=== PATIENT | male | born 1940 | race Caucasian/White ===

== ENCOUNTER 2018-05-31 09:18 | Outpatient (CLI) | payer MEDICARE ==
[2018-05-31 10:40] LABS: #Eosinphils 0.2 thou/uL (0.0-0.7); #Lymphocytes 0.7 thou/uL (1.20-3.40); #Monocytes 0.3 thou/uL (0.11-0.59); #Neutrophils 2.8 thou/uL (1.40-6.50); %Basophils 0.6 % (0.0-1.0); %Eosinophils 5.4 % (0.0-10.0); %Lymphocytes 16.6 % (21.0-51.0); %Monocytes 6.4 % (0.0-10.0); Hemoglobin 13.6 g/dL (14.0-18.0); Mean Corpuscular HGB CONC 32.8 g/dL (32.0-36.0); Mean Corpuscular Hemoglobin 32.4 pg (27.0-31.0); Mean Corpuscular Volume 98.6 fL (78.0-98.0); Mean Platelet Volume 7.8 fL (7.4-10.4); Platelet Count 140 thou/uL (130-400); RBC Distribution Width 13.8 % (11.5-14.5); Red Blood Cell (RBC) Count 4.21 mill/uL (4.70-6.10)
[2018-05-31 10:44] LABS: INR-International Normal Ratio 2.6; Prothrombin Time 28.1 SEC (12.0-14.7)
[2018-05-31 10:45] LABS: PTT 43.6 SEC (22.9-36.1)
[2018-05-31 11:01] LABS: ALT (SGPT) 20 U/L (8-55); AST (SGOT) 23 U/L (5-34); Alkaline Phosphatase 111 U/L (40-150); Anion Gap 8 mmol/L (10-20); BUN (Urea Nitrogen) 21 mg/dL (8.4-25.7); Calc. Creatinine Clearance 0 mL/min (70-130); Calcium 9.9 mg/dL (7.8-10.44); Carbon Dioxide 33 mmol/L (23-31); Chloride 107 mmol/L (98-107); Estimated GFR-MDRD 81; Globulin 3.2 g/dL (2.4-3.5); Glucose 107 mg/dL (83-110); Potassium 3.9 mmol/L (3.5-5.1); Protein, Total 7.2 g/dL (5.8-8.1); Sodium 144 mmol/L (136-145)
== END 2018-05-31 09:19 | disposition home or self-care (01) ==
LOC: LABBT 09:18
PROVIDERS: ATTEND Internal Medicine Cardiovascular Disease
DX: Z01.812 Encounter for preprocedural laboratory examination (principal); R93.89 Abnormal findings on diagnostic imaging of other specified body structures
CPT/HCPCS: 80053; 85025; 85610; 85730

== ENCOUNTER 2018-06-05 05:51 | Inpatient (IN) | payer MEDICARE ==
[2018-06-05 06:48] LABS: INR-International Normal Ratio 1.4; PTT 35.6 SEC (22.9-36.1); Prothrombin Time 17.5 SEC (12.0-14.7)
[2018-06-05 07:02] LABS: Cardiac Risk 3.2 (Less than 4.5)
[2018-06-05] MEDS ORDERED: Heparin 10,000 UNITS/1 ML VIAL ONE (08:27)
[2018-06-05] MEDS ORDERED: Lidocaine 1% (PF) 30 ML VIAL ONE (08:28)
[2018-06-05] MEDS ORDERED: Fentanyl 100 MCG/2 ML VIAL ONE (09:33)
[2018-06-05] MEDS ORDERED: Midazolam HCl 2 mg/2 ml Vial ONE (09:33)
[2018-06-05] MEDS ORDERED: hydrALAZINE 20 MG/ML VIAL ONE ×2 (10:17→11:07)
[2018-06-05] MEDS ORDERED: Protamine Sulfate 50 MG/5 ML VIAL ONE (10:17)
[2018-06-05] MEDS ORDERED: traMADol HCl 50 MG TAB PO PRN (10:39)
[2018-06-05] MEDS ORDERED: Acetaminophen/Codeine 30-300mg Tablet PO PRN ×2 (10:39)
[2018-06-05] MEDS ORDERED: Nitroglycerin 0.4 MG TAB (25 Tab Bottle) SL PRN (10:39)
[2018-06-05] MEDS ORDERED: Sodium Chloride 0.9% 200 ML IV PRN (10:45)
[2018-06-05] MEDS ORDERED: Sodium Chloride 0.9% 1,000 ML IV SCH (10:45)
[2018-06-05] MEDS ORDERED: Iopamidol 370 76% 50 ML VIAL FS ONE (10:54)
[2018-06-05] MEDS ORDERED: Iopamidol 370 76% 100 ML VIAL ONE (10:54)
[2018-06-05] MEDS ORDERED: Nitroglycerin 4.9 GM Bottle ONE (11:07)
[2018-06-05 14:33] VITALS: BMI 34.4
[2018-06-05] MEDS: Carvedilol 6.25 MG TAB PO SCH (16:32)
--- NOTE | 2018-06-05 18:40 | HP ---
HISTORY: Clement Lozoya is a 77-year-old white male that I have been following since 07/2009. He had moved here from [place], [place]. In 03/2005, he was found to have atrial fibrillation. He underwent transesophageal echo and electrical cardioversion. However, with 100, 150, 250 and 360 joules x3, he did not convert. He states that since that time, he has been in atrial fibrillation. However, from some of the old records that I had, it was confusing in that a Holter monitor from 04/2005 stated that he was in sinus rhythm. He has, however, been on Coumadin since that time. In 03/2005, he underwent Cardiolite treadmill test and was found to have ischemia in the LAD distribution. He underwent catheterization and was found to have a 40-50% proximal LAD and a 40% mid RCA stenosis. He was asymptomatic until 02/2007 when he developed episodes of " indigestion." He again underwent nuclear scan which revealed more significant findings in the anterior wall. He again underwent cardiac catheterization, had ejection fraction of 60%. There was a 95% proximal LAD stenosis at the takeoff of the first diagonal, 40-50% first diagonal stenosis and 50-60% mid LAD stenosis. There was mild plaquing of the circumflex. The right coronary artery had a 30% mid stenosis. He then underwent placement of a Cypher 2.5 x 13 mm stent in the first diagonal and a Cypher 3.0 x 13 mm stent in the LAD. The LAD stent was postdilated with 3.5 mm balloon. Since that time, he has not had any further episodes of "indigestion. " Since being followed here, he has had Cardiolite performed in 08/2009, 07/2011, 11/2013 and 09/2015, which have been unremarkable. He recently underwent evaluation prior to undergoing cystoscopy. Echocardiogram revealed ejection fraction 55-60% with moderate left atrial enlargement, mild mitral regurgitation , mild mitral annular calcification, aortic valvular sclerosis, mild tricuspid regurgitation, and mild pulmonic regurgitation. He underwent cardiac PET scan which revealed ischemia of the distal anterior apical, distal inferior and mid to distal septal haas. With this new finding of ischemia, it was recommended he undergo cardiac catheterization. Risks of this were discussed including , myocardial infarction, dye reaction, vascular injury, CVA, transfusion, limb loss, renal loss, etc. Also, risk of intervention with PTCA and stent placement were thoroughly discussed including , myocardial infarction, emergent CABG, restenosis, stent thrombosis, vessel perforation, etc. We discussed bare metal stent versus drug-eluting stent. With his need for long- term anticoagulation, only a bare metal stent would be placed. PAST MEDICAL HISTORY: Hypertension, hypercholesterolemia, hypertriglyceridemia , obstructive sleep apnea, chronic atrial fibrillation. No history of diabetes. MEDICATIONS: Fish oil 1000 mg t.i.d., probiotic 1 daily, carvedilol 25 mg 1/2 tablet b.i.d., oxybutynin 15 mg daily, Jantoven 5 mg 1-1/2 tablets on Monday, Monday, Monday and 2 tablets on the other days, simvastatin 20 at bedtime, CoQ10 of 100 mg daily, aspirin 81 daily, lisinopril 20 mg daily, furosemide 80 mg daily. ALLERGIES: None. OPERATIONS: Herniorrhaphy, radiofrequency ablation of the right great saphenous vein. SOCIAL HISTORY: He does not smoke or drink. 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 FAMILY HISTORY: Mother had stroke and . No family history of CABG, myocardial infarction, or sudden . REVIEW OF SYSTEMS: Twelve-point review of systems is unremarkable. PHYSICAL EXAMINATION: VITAL SIGNS: Blood pressure 170/80, pulse of 50. HEENT: PERRL. NECK: Supple. CHEST: Clear. CARDIAC: S1, S2 normal, without any S3, S4 or murmurs. ABDOMEN: Normal bowel sounds, without tenderness. EXTREMITIES: Revealed 1+ pretibial edema on the right with significant chronic stasis changes. On the left, there is trace edema with stasis changes. They are not as significant as the right. NEUROLOGIC: Grossly intact. SKIN: Warm and dry. LABORATORY DATA: Pending. IMPRESSION: 1. Abnormal nuclear scan with ischemia of the distal anterior apical distal inferior and mid to distal septal haas. He has been off his Coumadin for 5 days for the catheterization. 2. Preoperative cardiovascular examination prior to a procedure-cystoscopy. 3. Status post drug-eluting stent placement in the proximal LAD and first diagonal in 01/2007 in [place], [place]. 4. Chronic atrial fibrillation, rate controlled. 5. Hypercholesterolemia. 6. Hypertriglyceridemia. 7. Hypertension. 8. Obstructive sleep apnea. 9. Venous insufficiency, status post right great saphenous vein radiofrequency ablation. He does have right anterior accessory great saphenous vein and right small saphenous vein, both of which have reflux. PLAN: Patient will undergo cardiac catheterization and indicated procedures. Risks have been discussed and he agrees to proceed. TAHIR
[2018-06-05] MEDS ORDERED: Fish Oil 1,000 MG CAP PO SCH (21:00)
[2018-06-05] MEDS ORDERED: Atorvastatin Calcium 10 MG TAB PO SCH (21:00)
--- NOTE | 2018-06-05 21:31 | CT ---
CT CHEST WITHOUT CONTRAST: 06/05/18 Multiple axial tomograms obtained through the chest without IV enhancement. INDICATION: Assess the thoracic aorta for aneurysmal dilatation and tortuosity. FINDINGS: The lung faulkner are clear with no focal infiltrate. There is interstitial prominence peripherally wit h stranding in the bases. There are a few scattered calcified granuloma which are tiny measuring in t he 3 mm range. The findings are consistent with chronic lung change. There are nonspecific mediastinal lymph nodes. A precarinal lymph node measures 2.0 cm. There are sub carinal lymph nodes measuring up to 1.5 cm. Numerous AP window nodes measuring up to 1.8 cm. Small bi lateral hilar nodes measuring up to 1.0 cm. Evaluation of the thoracic aorta shows mild aneurysmal di latation. Diameter at the aortic root a the sinus of Valsalva is measured at 4.4 cm. Sinotubular paresh surement is recorded at 3.4 cm. These are both mildly increased for male patient. Ascending aorta shows slight aneurysmal dilatation measured at 3.8 cm. The proximal descending thoracic aorta slightly above normal at 3.0 cm and the more distal descending thoracic aorta measures 3.0 cm. There are atherosclerotic changes involving the thoracic aorta with peripheral calcification. The descending thoracic aorta is tortuous. Images through the upper abdomen unremarkable. IMPRESSION: 1. Chronic lung changes with peripheral interstitial thickening and fibrotic stranding prominent in the lung bases. Scattered calcified granuloma. 2. Nonspecific mediastinal lymph node enlargement as described. 3. 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 The descendin g thoracic is tortuous. POS: [facility]
--- NOTE | 2018-06-05 22:11 | RAD ---
PORTABLE CHEST: 06/05/18 HISTORY: Preoperative evaluation. FINDINGS/IMPRESSION: Cardiomegaly with mild vascular congestion is seen. No focal consolidation or infiltrate. No signific ant effusion. POS: [facility]
[2018-06-05] MEDS ORDERED: [UNRECOGNIZED DRUG - REMARK] FS SCH (22:15)
--- NOTE | 2018-06-05 22:21 | CON ---
DATE OF CONSULTATION: 06/05/2018 REQUESTING PHYSICIAN: Silas Bahena MD. PRIMARY CARE PHYSICIAN: Nestor Napier MD. CHIEF COMPLAINT: Dyspnea on exertion. HISTORY OF PRESENT ILLNESS: The patient is a 77-year-old white man with hypertension and chronic atr ial fibrillation. He was due to have a cystoscopy for possible resection of a bladder tumor and was referred for a cardiac evaluation prior to that procedure. Nuclear stress test done as a part of antonio t evaluation showed anteroapical, inferior, and septal ischemia, and cardiac catheterization today sh ows severe three-vessel coronary artery disease primarily left-sided disease with preserved left vent ricular systolic function. The patient denies any chest pain, pressures, or squeezing. He denies an y heartburn type symptoms, but in retrospect, he does admit to some modest dyspnea on exertion over t he past year that had not been particularly bothersome and he had attributed to simply being decondit ioned from lack of exercise. He has noticed that walking on an incline is far more likely to make hi m short of breath than walking on the flat. PAST MEDICAL HISTORY: Significant for his chronic atrial fibrillation, hypertension, hypercholestero lemia, obstructive sleep apnea, and bilateral venous stasis disease far worse on the right than on th e left. HOME MEDICATIONS: Lisinopril 20 mg a day, Coreg 12.5 mg b.i.d., and Coumadin 7.5 mg on Monday, , and Monday and 10 mg on Monday, Monday, and . Simvastatin 20 mg a day, baby aspirin a day, Lasix 80 mg a day, Coenzyme Q10 of 100 mg a day, fish oil 1000 mg t.i.d., multivitamin daily, a nd probiotic. His Coumadin currently is on hold. ALLERGIES: He denies any medical allergies. SOCIAL HISTORY: He has never smoked. FAMILY HISTORY: Significant for a brother who of a stroke. REVIEW OF SYSTEMS: Negative for any eye, speech, facial, or extremity symptoms consistent with TIAs. Negative for any claudication symptoms. It is positive for some fairly dramatic right leg swelling and some mild left leg swelling. It is negative for any orthopnea or PND. PHYSICAL EXAMINATION: GENERAL: He is in no distress. VITAL SIGNS: Heart rate is in the 60s to 70s. Blood pressure in the 170s/80s. Room air O2 sats are 96%, respirations 18, temperature 98.6. He has no xanthelasma. He has dentures. NECK: No JVD, no carotid bruits. LUNGS: His chest is clear to auscultation. HEART: He has an irregular rate and rhythm. ABDOMEN: Soft and nontender without masses or bruits. EXTREMITIES: He has easily palpable radial, ulnar, dorsalis pedis, and posterior tibial pulses bilat erally. Wilfredo's testing is normal on both sides. His lower legs show venous stasis pigmentation jael nges quite dramatically involving most of the right lower leg, which is probably twice as big as the left lower leg. NEUROLOGIC: Exam is grossly nonfocal. LABORATORY DATA: Shows a white count of 4.0, hemoglobin 13.6, hematocrit 41.5, platelets 140,000. P T was 17.5 with an INR of 1.4 and PTT was 35.6. Electrolytes were normal. Glucose 107, BUN 21, crea tinine 0.91. LFTs were normal. Calcium 9.9, albumin 4.0. Cardiac catheterization shows a right dom inant system with about 50% or perhaps 60% lesion in its mid portion near the acute marginal. There is some irregularity in the distal vessel with about 60% or 70% focal lesion in the [id number] PDA , a fairly pronounced posterolateral system. The left main is essentially normal and the circumflex has a high-grade proximal lesion and it is a diminutive system with only very tiny obtuse marginals c oming out of the groove. He has diffusely diseased LAD with focal 99% lesion in its mid portion. He has a high bifurcated diagonal that runs in a ramus type distribution and there is some haziness in the very proximal portion and it bifurcates proximally; however, the more posterolateral branch has w hat appears to be a significant proximal lesion in it, but both branches are fairly small. LVEF is a round 50%-60% with some anterior hypokinesis. LV pressure was 169/6 with an EDP of 11 and aortic pre ssure was 163/63 with a mean of 98. IMPRESSION AND RECOMMENDATIONS: Significant 3-vessel coronary artery disease with his dyspnea on exe rtion in all likelihood representing ischemia, which has been physiologically documented by nuclear s tress testing. Dr. Bahena described to me some technical difficulties negotiating his catheters ar ound the arch to do coronary angiography and is concerned that he may have an ectatic aorta or even a n aneurysmal aorta, and a CT scan without contrast is going to be done this evening to screen for antonio t possibility. Assuming that, that does not show anything to change or plan, I will plan on coronary artery bypass grafting this hospitalization while he is off Coumadin.
[2018-06-06 05:59] LABS: #Eosinphils 0.2 thou/uL (0.0-0.7); #Lymphocytes 0.7 thou/uL (1.20-3.40); #Monocytes 0.4 thou/uL (0.11-0.59); #Neutrophils 3.6 thou/uL (1.40-6.50); %Eosinophils 3.5 % (0.0-10.0); %Monocytes 8.6 % (0.0-10.0); %Neutrophils 73.9 % (42.0-75.0); Hemoglobin 13.1 g/dL (14.0-18.0); Mean Corpuscular HGB CONC 32.1 g/dL (32.0-36.0); Mean Corpuscular Hemoglobin 31.8 pg (27.0-31.0); Mean Platelet Volume 7.9 fL (7.4-10.4); Platelet Count 137 thou/uL (130-400); RBC Distribution Width 13.7 % (11.5-14.5); Red Blood Cell (RBC) Count 4.11 mill/uL (4.70-6.10); White Blood Cell (WBC) Count 4.9 thou/uL (4.8-10.8)
[2018-06-06] MEDS ORDERED: CEFAZOLIN 2 GM/50 ML BAG IVPB SCH (06:00)
[2018-06-06 06:12] LABS: Anion Gap 12 mmol/L (10-20); BUN (Urea Nitrogen) 20 mg/dL (8.4-25.7); Calc. Creatinine Clearance 114 mL/min (70-130); Calcium 9.3 mg/dL (7.8-10.44); Carbon Dioxide 23 mmol/L (23-31); Chloride 108 mmol/L (98-107); Estimated GFR-MDRD 83; Glucose 103 mg/dL (83-110); Potassium 4.1 mmol/L (3.5-5.1); Sodium 139 mmol/L (136-145)
[2018-06-06] MEDS ORDERED: Furosemide 80 MG TAB PO SCH (07:30)
[2018-06-06] MEDS: Carvedilol 6.25 MG TAB PO SCH (07:54)
[2018-06-06] MEDS ORDERED: Lisinopril 20 MG TAB PO SCH (09:00)
[2018-06-06] MEDS ORDERED: Aspirin 81 mg Enteric Coated Tablet PO SCH (09:00)
[2018-06-06] MEDS ORDERED: Ubidecarenone 50 MG CAP PO SCH (09:00)
[2018-06-06] MEDS ORDERED: CEFAZOLIN 2 GM/50 ML BAG ONE (09:03)
[2018-06-06] MEDS ORDERED: Midazolam HCl 2 mg/2 ml Vial ONE ×2 (09:19→10:59)
[2018-06-06] MEDS ORDERED: Ondansetron ODT 4 MG TAB ONE (09:20)
[2018-06-06] MEDS ORDERED: Magnesium 5 GM/10 ML VIAL ONE (10:01)
[2018-06-06] MEDS ORDERED: Lidocaine 2% PF 100 mg/5 ml Syringe ONE (10:01)
[2018-06-06] MEDS ORDERED: PROPOFOL 200 MG/20 ML VIAL ONE (10:01)
[2018-06-06] MEDS ORDERED: Sodium Bicarb 50 MEQ/50 ML VIAL ONE (10:01)
[2018-06-06] MEDS ORDERED: Heparin 5,000 UNITS/ML VIAL ONE (10:01)
[2018-06-06] MEDS ORDERED: PHENYLEPHRINE-NS 100 MCG/ML 10 ML SYRINGE ONE ×2 (10:01→14:48)
[2018-06-06] MEDS ORDERED: Nitroglycerin 50 MG/250 ML BOT ONE (10:01)
[2018-06-06] MEDS ORDERED: Papaverine 60 MG/2 ML VIAL ONE (10:01)
[2018-06-06] MEDS ORDERED: Vecuronium 10 MG VIAL ONE ×2 (10:01→10:27)
[2018-06-06] MEDS ORDERED: Potassium Chloride 60 MEQ/30 ML VIAL ONE (10:01)
[2018-06-06] MEDS ORDERED: Cardioplegic Soln 1,000 ML BAG ONE (10:01)
[2018-06-06] MEDS ORDERED: Mannitol 12.5 GM/50 ML ONE (10:01)
[2018-06-06] MEDS ORDERED: Protamine Sulfate 250 MG/25 ML VIAL ONE (10:01)
[2018-06-06] MEDS ORDERED: Heparin 30,000 units/30 ml VIAL ONE (10:01)
[2018-06-06] MEDS ORDERED: Aminocaproic Acid 5 GM/20 ML VIAL ONE (10:01)
[2018-06-06] MEDS ORDERED: Thrombin 5000 UNITS/5 ML VIAL ONE (10:01)
[2018-06-06] MEDS ORDERED: Lidocaine 1% PF 5 ML VIAL ONE (10:01)
[2018-06-06] MEDS ORDERED: Calcium Chloride 1 GM/10 ML Abboject SYRINGE ONE (10:01)
[2018-06-06] MEDS ORDERED: Albumin 5% 0 ML ONE (10:05)
[2018-06-06] MEDS ORDERED: Norepinephrine 8 MG/0.9% NS 250 ML ONE (10:27)
[2018-06-06] MEDS ORDERED: Heparin 10,000 UNITS/1 ML VIAL 30,000 UNITS in Sodium Chloride 0.9% 1,000 ML IVPB SCH (10:30)
[2018-06-06] MEDS ORDERED: Norepinephrine 8 MG/0.9% NS 250 ML IVPB PRN (10:56)
[2018-06-06] MEDS ORDERED: Acetaminophen 325 MG TAB PO PRN (10:56)
[2018-06-06] MEDS ORDERED: Post-Op Insulin Drip Protocol IVPB ONE (10:56)
[2018-06-06] MEDS ORDERED: hydrALAZINE 20 MG/ML VIAL SLOW IVP PRN (10:56)
[2018-06-06] MEDS ORDERED: Ondansetron PF 4 MG/2 ML Vial IVP PRN (10:56)
[2018-06-06] MEDS ORDERED: HYDROcodone/Acetaminophen 5/325 mg Tablet PO PRN (10:56)
[2018-06-06] MEDS ORDERED: Potassium Chloride 20 MEQ/100 ML PREMIX BAG IVPB PRN (10:56)
[2018-06-06] MEDS ORDERED: Mag-Al 1200 mg/1200 mg/30 ML UDCUP PO PRN (10:56)
[2018-06-06] MEDS ORDERED: Promethazine HCl 25 MG/ML VIAL IM PRN (10:56)
[2018-06-06] MEDS ORDERED: Fentanyl 100 MCG/2 ML VIAL SLOW IVP PRN ×2 (10:56)
[2018-06-06] MEDS ORDERED: Hetastarch 6% 500 ML 500 ML IVPB PRN (10:56)
[2018-06-06] MEDS ORDERED: Bisacodyl 5 MG TAB PO PRN (10:56)
[2018-06-06] MEDS ORDERED: Nitroglycerin 50 MG/250 ML BOT 250 ML IVPB PRN (10:56)
[2018-06-06] MEDS ORDERED: Guaifenesin DM 100-10/5 ML UDCUP PO PRN (10:56)
[2018-06-06] MEDS ORDERED: Bisacodyl 10 MG SUPP PR PRN (10:56)
[2018-06-06] MEDS ORDERED: Fentanyl 250 MCG/5 ML VIAL ONE (10:59)
[2018-06-06] MEDS ORDERED: Dextrose 50% Abboject 50 ML SYRINGE SLOW IVP PRN (12:19)
[2018-06-06] MEDS ORDERED: Dextrose 5% in Water 1,000 ML IV PRN (12:19)
[2018-06-06 16:11] LABS: Actual Bicarbonate (HCO3a) 25.6 mEq/L (22-28); Base Excess (BEa) 0.4 mEq/L (-2.0 to +3.0); CO2 Tension 43.7 mmHg (35.0-45.0); Calcium, Ionized 1.09 mmol/L (1.12-1.30); Carboxyhemoglobin (COHb) 1.4 gm% (0.0-3.0); Hemoglobin (Hb) 11.7 g/dL (14.0-18.0); O2 Tension (PaO2) 65.5 mmHg (> 70.0); Potassium - ABG Lab 3.85 mmol/L (3.70-5.30); pH, Arterial 7.39 (7.35-7.45)
[2018-06-06 16:14] LABS: ALV-art Gradient 236.375 (0-20); Puncture Site LINE
[2018-06-06 16:20] LABS: #Eosinphils 0.2 thou/uL (0.0-0.7); #Lymphocytes 0.7 thou/uL (1.20-3.40); #Monocytes 0.5 thou/uL (0.11-0.59); #Neutrophils 6.3 thou/uL (1.40-6.50); %Basophils 0.1 % (0.0-1.0); %Eosinophils 2.1 % (0.0-10.0); %Lymphocytes 9.7 % (21.0-51.0); %Monocytes 5.9 % (0.0-10.0); %Neutrophils 82.3 % (42.0-75.0); Hemoglobin 11.2 g/dL (14.0-18.0); Mean Corpuscular HGB CONC 33.1 g/dL (32.0-36.0); Mean Corpuscular Hemoglobin 32.5 pg (27.0-31.0); Mean Corpuscular Volume 98.2 fL (78.0-98.0); Mean Platelet Volume 7.3 fL (7.4-10.4); Platelet Count 99 thou/uL (130-400); RBC Distribution Width 13.7 % (11.5-14.5); Red Blood Cell (RBC) Count 3.44 mill/uL (4.70-6.10); White Blood Cell (WBC) Count 7.7 thou/uL (4.8-10.8)
[2018-06-06 16:24] LABS: INR-International Normal Ratio 1.7; PTT 35.9 SEC (22.9-36.1); Prothrombin Time 19.9 SEC (12.0-14.7)
--- NOTE | 2018-06-06 16:27 | RAD ---
CHEST ONE VIEW 06/06/18 HISTORY: 77-year-old male with history of postop open heart. COMPARISON: 06/05/18. FINDINGS: Chest tubes in place. Postop midline sternotomy. Endotracheal tube and right central lines in place. There is bilateral vascular congestion with some bibasilar parenchymal changes, evidence for some sub segmental atelectasis and small pleural effusions and postoperative change. IMPRESSION: Bilateral vascular congestion with small pleural effusions. Recent postop midline sternotomy. Continu ed short term followup. POS: [facility]
[2018-06-06 16:38] LABS: Anion Gap 10 mmol/L (10-20); BUN (Urea Nitrogen) 18 mg/dL (8.4-25.7); Calc. Creatinine Clearance 130 mL/min (70-130); Calcium 7.9 mg/dL (7.8-10.44); Carbon Dioxide 26 mmol/L (23-31); Chloride 112 mmol/L (98-107); Estimated GFR-MDRD Greater than 90; Glucose 136 mg/dL (83-110); Sodium 144 mmol/L (136-145)
[2018-06-06] MEDS: Insulin Regular 300 UNITS/3 ML VIAL SC PRN ×2 (17:02→20:06)
[2018-06-06] MEDS: Sodium Chloride 0.9% 1,000 ML IV SCH (17:07)
--- NOTE | 2018-06-06 19:09 | OP ---
DATE OF OPERATION: 06/06/2018 PROCEDURES PERFORMED: Coronary artery bypass grafting x3 with left internal mammary artery to the di stal LAD and reverse greater saphenous vein graft from the aorta to the posterior branch of the first diagonal and reverse greater saphenous vein graft from the aorta to the distal PDA. PREOPERATIVE DIAGNOSIS: Coronary artery disease and chronic atrial fibrillation. POSTOPERATIVE DIAGNOSIS: Coronary artery disease and chronic atrial fibrillation with right pneumoth orax. SURGEON: Festus Harkins MD RV TECHNICIAN: Yo. ANESTHESIA: General endotracheal. INDICATIONS: The patient is a 77-year-old man with chronic atrial fibrillation who had anterior apic al inferior and septal ischemia on a stress test that was part of a preoperative evaluation prior to a cystoscopic procedure. Cardiac catheterization demonstrated 3-vessel coronary artery disease with a diminutive disease. Circumflex system with significant disease in the right coronary system and a subtotal lesion in the LAD. He is now taken to the operating room off of his Coumadin for surgical r evascularization. FINDINGS: Pump time 78 minutes, crossclamp time 39 minutes. Good quality SHARON and saphenous vein, a very large heart. The LAD was diffusely diseased. It was poor quality vessel, it was about a 1.5 mm vessel near the apex where it was grafted. The main trunk of the diagonal was rock hard. The more posterior of the two branches was of fairly good quality beyond the proximal plaquing and was about 1 .5 mm vessel. The PDA and distal right coronary system were diffusely diseased. The posterolateral branches were soft. The PDA was rock hard throughout much of its length, was of fair quality, 1.5 mm vessel distally were grafted. The right pleura bulged under a small amount of pressure upon weaning from bypass. Pericardium was loosely closed. NARRATIVE REPORT: After informed consent was obtained, the patient was taken to the operating room a nd placed in supine position on the operating table. After the induction of general anesthesia, the patient's right upper chest was prepped and draped in sterile fashion and a triple-lumen central line kit was used to place a right subclavian central line by the Seldinger technique. All three ports e asily aspirated and flushed. The line was secured. Ultrasonographic mapping of the left greater sap henous vein was undertaken. The patient's torso, groins and lower extremities were prepped and drape d in sterile fashion and clinical assistant endoscopically harvested left greater saphenous vein from groin to mid calf. The vein was prepared for use as a graft and the port site was closed in layers of subcut aneous and subcuticular Vicryl. Meanwhile, a median sternotomy was performed and the left internal m ammary artery was mobilized as a skeletonized in situ graft through an extrapleural exposure from the level of the xiphoid to the level of the subclavian vein. The patient was heparinized. The mammary was ligated and divided distally. There was excellent flow through the mammary which was then insti lled intraluminally with papaverine solution. A rent in the pleura near the apex medially was overse wn. The hilar reflections of the pleura were mobilized. The mammary bed was inspected for hemostasi s. The SHARON retractor was placed with a Gallegos retractor. Pericardium was opened and marsupialized. Aorta was palpated and was soft. A double concentric pursestring of 2-0 Ethibond was placed in the a scending aorta just beyond the pericardial reflection and a single pursestring was placed in the righ t atrial appendage. Aortic and venous cannulae were inserted and secured by their pursestrings. The plane between the aorta and the pulmonary artery was developed. Cardiopulmonary bypass was institut ed and the patient was systemically cooled. Heart was examined and the vessels to be bypassed were i dentified. A longitudinal slit was made in the pericardium anterior to the left phrenic nerve throug h which the mammary could be passed. An aortic crossclamp was applied and cardioplegia was administe red through an aortic root needle. When arrest had been achieved, attention was turned to the PDA. It was opened with a [place] blade and Bry scissors at the transition between very hard plaquing and a softer vessel distally. Saphenous vein was anastomosed end-to-side with running Prolene suture and the anastomosis tested by flushing cold saline down the graft, cold cardioplegia down the graft. The diagonal was then explored. The more posterior branch was opened and grafted in a similar unc health ion. The LAD was exposed where it ran deep in the fat. It was a very poor quality vessel, relative soft spot near the apex was identified. It was still a fairly reasonably sized vessel. At that poin t, the mammary was anastomosed there with running 7-0 Prolene suture and the electrocautery used to c ontrol venous bleeding in the epicardial dissection bed, the mammary was tacked to the epicardium. T he aortic crossclamp was placed with partial occluding clamp and aortotomies were made in the ascendi ng aorta PDA graft was anastomosed to the more proximal aortotomy in the diagonal graft and the more distal aortotomy. The partial occluding clamp was removed, and the vein grafts were deaired. The anastomoses were inspected for hemostasis. Proximal anastomoses were marked with small Hemoclips . A posterior pericardial drain was brought out through a separate incision and secured with suture. Right ventricular temporary epicardial pacing wires were placed. The patient was then easily separ ated from cardiopulmonary bypass. An anterior mediastinal drain was placed and the pericardium was l oosely closed over with running Vicryl. The right pleura was bulging. It was decompressed and a 28- Gambian chest tube was placed through that incision in the right pleura. The sternum was treated with vancomycin paste and a platelet rich GPS. The sternum was reapproximated with #7 stainless steel wi res. The fascia and subcutaneous tissue were irrigated and treated with the fascia was closed over the wire with heavy Vicryl. The subcutaneous tissue was reapproximated and the skin was closed with Vicryl subcuticular stitch. The wound was dressed. The patient was taken to the intensive care unit in stable condition.
[2018-06-06 19:54] LABS: Actual Bicarbonate (HCO3a) 22.1 mEq/L (22-28); Base Excess (BEa) -1.4 mEq/L (-2.0 to +3.0); CO2 Tension 33.7 mmHg (35.0-45.0); Calcium, Ionized 1.16 mmol/L (1.12-1.30); Hemoglobin (Hb) 12.9 g/dL (14.0-18.0); O2 Tension (PaO2) 95.7 mmHg (> 70.0); Potassium - ABG Lab 4.16 mmol/L (3.70-5.30); pH, Arterial 7.44 (7.35-7.45)
[2018-06-06 19:55] LABS: Puncture Site A-LINE
[2018-06-06 19:56] LABS: ALV-art Gradient 76.075 (0-20)
[2018-06-06] MEDS: Famotidine/PF 20 mg/2ml Vial SLOW IVP SCH (20:09)
[2018-06-06] MEDS: Fish Oil 1,000 MG CAP PO SCH (20:11)
[2018-06-06] MEDS: Atorvastatin Calcium 10 MG TAB PO SCH (20:11)
[2018-06-06 20:43] LABS: Hemoglobin 12.7 g/dL (14.0-18.0)
[2018-06-06 20:57] LABS: Potassium 4.3 mmol/L (3.5-5.1)
[2018-06-07] MEDS: HYDROcodone/Acetaminophen 5/325 mg Tablet PO PRN (00:42)
[2018-06-07] MEDS: Sodium Chloride 0.9% 1,000 ML IV SCH (00:49)
[2018-06-07 04:50] LABS: Anion Gap 13 mmol/L (10-20); BUN (Urea Nitrogen) 27 mg/dL (8.4-25.7); Calc. Creatinine Clearance 97 mL/min (70-130); Calcium 8.3 mg/dL (7.8-10.44); Carbon Dioxide 22 mmol/L (23-31); Chloride 112 mmol/L (98-107); Estimated GFR-MDRD 70; Glucose 112 mg/dL (83-110); Potassium 4.2 mmol/L (3.5-5.1); Sodium 143 mmol/L (136-145)
[2018-06-07 04:56] LABS: #Lymphocytes 0.6 thou/uL (1.20-3.40); #Monocytes 0.8 thou/uL (0.11-0.59); #Neutrophils 9.2 thou/uL (1.40-6.50); %Eosinophils 0.3 % (0.0-10.0); %Lymphocytes 6.1 % (21.0-51.0); %Monocytes 7.1 % (0.0-10.0); %Neutrophils 86.5 % (42.0-75.0); Hemoglobin 12.2 g/dL (14.0-18.0); Mean Corpuscular HGB CONC 33.4 g/dL (32.0-36.0); Mean Corpuscular Hemoglobin 32.4 pg (27.0-31.0); Mean Corpuscular Volume 97.3 fL (78.0-98.0); Mean Platelet Volume 7.8 fL (7.4-10.4); Platelet Count 148 thou/uL (130-400); RBC Morphology Normal; Red Blood Cell (RBC) Count 3.77 mill/uL (4.70-6.10); White Blood Cell (WBC) Count 10.6 thou/uL (4.8-10.8)
[2018-06-07] MEDS: Famotidine/PF 20 mg/2ml Vial SLOW IVP SCH (08:54)
[2018-06-07] MEDS: Aspirin 81 mg Enteric Coated Tablet PO SCH (08:54)
[2018-06-07] MEDS: Fish Oil 1,000 MG CAP PO SCH ×2 (08:54→20:55)
[2018-06-07] MEDS: Multivitamin W/ Minerals 1 TAB PO SCH (08:55)
[2018-06-07] MEDS: Oxybutynin ER 5 MG TAB PO SCH (08:55)
[2018-06-07] MEDS: Ubidecarenone 50 MG CAP PO SCH (08:55)
--- NOTE | 2018-06-07 09:21 | RAD ---
CHEST ONE VIEW: History: Open heart surgery. Comparison: Previous day. FINDINGS: Heart size is enlarged. Patient has been extubated. Thoracostomy tubes and mediastinal drains are similar. Small effusions. No large pneumothorax is appr eciated. Multiple sternotomy wires. IMPRESSION: Interval extubation without complication. POS: [facility]
[2018-06-07] MEDS ORDERED: Zolpidem Tartrate 5 MG TAB PO PRN (09:46)
[2018-06-07] MEDS ORDERED: Mineral Oil ENEMA PR PRN (09:46)
[2018-06-07] MEDS ORDERED: Bisacodyl 5 MG TAB PO PRN (09:46)
[2018-06-07] MEDS ORDERED: diphenhydrAMINE 25 MG CAP PO PRN (09:46)
[2018-06-07] MEDS ORDERED: Bisacodyl 10 MG SUPP PR PRN (09:46)
[2018-06-07] MEDS ORDERED: Mag-Al 1200 mg/1200 mg/30 ML UDCUP PO PRN (09:46)
[2018-06-07] MEDS ORDERED: Nitroglycerin 0.4 MG TAB (25 Tab Bottle) SL PRN (09:46)
[2018-06-07] MEDS ORDERED: Guaifenesin DM 100-10/5 ML UDCUP PO PRN (09:46)
[2018-06-07] MEDS ORDERED: Artificial Tears 18 DROP/0.9 ML EA EYE PRN (09:46)
[2018-06-07] MEDS ORDERED: Furosemide 40 MG/4 ML VIAL SLOW IVP SCH ×2 (10:30→12:30)
[2018-06-07] MEDS ORDERED: Ketorolac Tromethamine 30 MG/ML VIAL IVP SCH (10:30)
[2018-06-07] MEDS ORDERED: Metolazone 5 MG TAB PO SCH (10:30)
--- NOTE | 2018-06-07 11:03 | PDOC.CTH ---
Cardiology Progress Note - Subjective No new issues. No chets pain. Chest is sore. Passing gas. - Objective Vital Signs Temp Pulse Ox 06/07/18 08:00 98.7 F 95 06/07/18 04:00 100.1 F H Weight 257 lb 15.053 oz 06/06/18 06/07/18 06/08/18 06:59 06:59 06:59 Intake Total 1450 2093 249 Output Total 1075 1300 115 Balance 375 793 134 - Physical Examination General/Neuro: alert & oriented x3, NAD Neck: no JVD present Lungs: CTA, unlabored respirations Heart: RRR Abdomen: NT/ND Extremities: + edema B (1+) - Telemetry Telemetry Rhythm: NSR - Labs Result Diagrams: 06/07/18 03:40 06/07/18 03:40 - Assessment/Plan 1. CAD. 2. S/P CABG x 3, [place] to LAD, SVg to diagonal, SVG to PDA. 3. Chronic afib. PLAN: - Aspirin and statin for life. - On BB - ACEI once BP allows. - Lasix PO BID. - Advance PT as tolerated.
[2018-06-07] MEDS: Furosemide 40 MG TAB PO SCH (15:15)
[2018-06-07] MEDS: Ketorolac Tromethamine 30 MG/ML VIAL IVP SCH (18:44)
[2018-06-07] MEDS: Atorvastatin Calcium 10 MG TAB PO SCH (20:54)
[2018-06-07] MEDS: Carvedilol 3.125 MG TAB PO SCH (20:55)
[2018-06-07] MEDS: Docusate 100 MG CAP PO SCH (20:55)
[2018-06-08] MEDS: Ketorolac Tromethamine 30 MG/ML VIAL IVP SCH ×2 (00:35→05:19)
[2018-06-08 06:18] LABS: Anion Gap 12 mmol/L (10-20); BUN (Urea Nitrogen) 46 mg/dL (8.4-25.7); Calc. Creatinine Clearance 74 mL/min (70-130); Calcium 8.3 mg/dL (7.8-10.44); Carbon Dioxide 23 mmol/L (23-31); Chloride 106 mmol/L (98-107); Estimated GFR-MDRD 49; Glucose 105 mg/dL (83-110); Potassium 3.9 mmol/L (3.5-5.1); Sodium 137 mmol/L (136-145)
[2018-06-08 06:27] LABS: #Lymphocytes 0.7 thou/uL (1.20-3.40); #Monocytes 0.7 thou/uL (0.11-0.59); #Neutrophils 5.6 thou/uL (1.40-6.50); %Basophils 0.1 % (0.0-1.0); %Eosinophils 0.6 % (0.0-10.0); %Lymphocytes 9.5 % (21.0-51.0); %Neutrophils 79.7 % (42.0-75.0); Hemoglobin 10.5 g/dL (14.0-18.0); Mean Corpuscular HGB CONC 32.5 g/dL (32.0-36.0); Mean Corpuscular Volume 98.5 fL (78.0-98.0); Mean Platelet Volume 7.8 fL (7.4-10.4); PLT Morphology Comment Appears Decreased; Platelet Count 108 thou/uL (130-400); Red Blood Cell (RBC) Count 3.28 mill/uL (4.70-6.10)
[2018-06-08] MEDS: Aspirin 81 mg Enteric Coated Tablet PO SCH (08:02)
[2018-06-08] MEDS: Carvedilol 3.125 MG TAB PO SCH ×2 (08:02→21:12)
[2018-06-08] MEDS: Fish Oil 1,000 MG CAP PO SCH ×2 (08:02→21:12)
[2018-06-08] MEDS: Oxybutynin ER 5 MG TAB PO SCH (08:03)
[2018-06-08] MEDS: Furosemide 40 MG TAB PO SCH ×2 (08:03→15:12)
[2018-06-08] MEDS: Ubidecarenone 50 MG CAP PO SCH (08:03)
[2018-06-08] MEDS: Multivitamin W/ Minerals 1 TAB PO SCH (08:03)
[2018-06-08] MEDS: Docusate 100 MG CAP PO SCH ×2 (08:04→21:12)
--- NOTE | 2018-06-08 09:34 | RAD ---
PORTABLE CHEST: HISTORY: Post CABG. COMPARISON: 06/07/2018 study. FINDINGS: Heart size is enlarged with postop sternotomy change. Tube placement appears stable as compared to t he prior exam. No new process. IMPRESSION: Stable exam. POS: [facility]
--- NOTE | 2018-06-08 14:13 | PDOC.CTH ---
Cardiology Progress Note - Subjective He is doing well. Chest tubes still in. Had a BM today. - Objective Vital Signs Temp Pulse Pulse Pulse Resp BP BP 06/08/18 11:52 73 72 146/62 H 107/58 L 06/08/18 11:45 98.8 F 78 16 06/08/18 07:59 06/08/18 07:57 98.6 F 75 18 06/08/18 03:31 98.7 F 69 18 BP Pulse Ox Pulse Ox Pulse Ox 06/08/18 11:52 94 L 95 06/08/18 11:45 107/58 L 99 06/08/18 07:59 95 06/08/18 07:57 115/62 95 06/08/18 03:31 113/53 L 97 Weight 257 lb 4 oz 06/07/18 06/08/18 06/09/18 06:59 06:59 06:59 Intake Total 2093 1199 Output Total 1300 995 Balance 793 204 - Physical Examination General/Neuro: alert & oriented x3, NAD Neck: no JVD present Lungs: CTA, unlabored respirations Heart: other: (irreg) Abdomen: NT/ND Extremities: + edema B (1+) - Telemetry Telemetry Rhythm: Afib HR 60's. - Labs Result Diagrams: 06/08/18 05:26 06/08/18 05:26 - Assessment/Plan 1. CAD. 2. S/P CABG x 3, [place] VE[place] to LAD, SVG to diagonal, SVG to PDA. 3. Chronic afib. PLAN: - Aspirin and statin for life. - On BB - ACEI once BP allows. - Lasix PO BID. - Advance PT as tolerated.
[2018-06-08] MEDS: Atorvastatin Calcium 10 MG TAB PO SCH (21:12)
[2018-06-09 07:00] LABS: #Basophils 0.1 thou/uL (0.0-0.2); #Eosinphils 0.1 thou/uL (0.0-0.7); #Lymphocytes 0.6 thou/uL (1.20-3.40); #Monocytes 0.5 thou/uL (0.11-0.59); #Neutrophils 4.9 thou/uL (1.40-6.50); %Basophils 1.8 % (0.0-1.0); %Eosinophils 2.3 % (0.0-10.0); %Lymphocytes 8.8 % (21.0-51.0); %Monocytes 8.4 % (0.0-10.0); %Neutrophils 78.7 % (42.0-75.0); Hemoglobin 10.6 g/dL (14.0-18.0); Mean Corpuscular HGB CONC 33.4 g/dL (32.0-36.0); Mean Corpuscular Hemoglobin 32.9 pg (27.0-31.0); Mean Corpuscular Volume 98.3 fL (78.0-98.0); Mean Platelet Volume 7.5 fL (7.4-10.4); Platelet Count 119 thou/uL (130-400); RBC Distribution Width 13.8 % (11.5-14.5); Red Blood Cell (RBC) Count 3.23 mill/uL (4.70-6.10); White Blood Cell (WBC) Count 6.3 thou/uL (4.8-10.8)
[2018-06-09 07:11] LABS: Anion Gap 11 mmol/L (10-20); BUN (Urea Nitrogen) 41 mg/dL (8.4-25.7); Calc. Creatinine Clearance 103 mL/min (70-130); Calcium 8.8 mg/dL (7.8-10.44); Carbon Dioxide 27 mmol/L (23-31); Chloride 104 mmol/L (98-107); Estimated GFR-MDRD 71; Glucose 96 mg/dL (83-110); Potassium 3.8 mmol/L (3.5-5.1); Sodium 138 mmol/L (136-145)
[2018-06-09] MEDS ORDERED: Fentanyl 100 MCG/2 ML VIAL ONE (07:40)
[2018-06-09] MEDS ORDERED: Sodium Chloride 0.9% 10 ML ONE (08:36)
[2018-06-09] MEDS: Aspirin 81 mg Enteric Coated Tablet PO SCH (09:15)
[2018-06-09] MEDS: Fish Oil 1,000 MG CAP PO SCH ×2 (09:15→21:05)
[2018-06-09] MEDS: Oxybutynin ER 5 MG TAB PO SCH (09:15)
[2018-06-09] MEDS: Furosemide 40 MG TAB PO SCH ×2 (09:15→13:48)
[2018-06-09] MEDS: Docusate 100 MG CAP PO SCH ×2 (09:15→21:05)
[2018-06-09] MEDS: Multivitamin W/ Minerals 1 TAB PO SCH (09:15)
[2018-06-09] MEDS: Ubidecarenone 50 MG CAP PO SCH (09:15)
[2018-06-09] MEDS: Carvedilol 3.125 MG TAB PO SCH ×2 (09:15→21:05)
--- NOTE | 2018-06-09 11:02 | RAD ---
CHEST 1 VIEW: HISTORY: Post CABG. COMPARISON: Radiograph of prior day. FINDINGS: Heart size continues to be enlarged. Small left effusion. The thoracostomy and mediastinal drains are similar. IMPRESSION: Expected postoperative findings. POS: [facility]
[2018-06-09] MEDS: HYDROcodone/Acetaminophen 5/325 mg Tablet PO PRN (12:52)
[2018-06-09] MEDS: Warfarin Sodium 10 MG TAB PO SCH (16:09)
[2018-06-09] MEDS: Atorvastatin Calcium 10 MG TAB PO SCH (21:05)
--- NOTE | 2018-06-09 21:06 | PDOC.CTH ---
<Iris Michel - Last Filed: 06/09/18 21:11> Cardiology Progress Note - Subjective The pt seen and examined. No overnight events. No cardiac complaints. - Objective Vital Signs Temp Pulse Resp BP Pulse Ox 06/09/18 16:11 98.9 F 76 18 147/73 H 95 06/09/18 11:39 98.6 F 69 18 121/61 Weight 257 lb 12.8 oz 06/08/18 06/09/18 06/10/18 06:59 06:59 06:59 Intake Total 1199 1070 850 Output Total 995 4155 995 Balance 204 -3085 -145 - Physical Examination General/Neuro: alert & oriented x3 Neck: no JVD present Lungs: CTA Heart: other: (irregular) Abdomen: soft Extremities: other: (No edema) - Labs Result Diagrams: 06/09/18 06:43 06/09/18 06:43 - Assessment/Plan 1. CAD with S/P CABG x 3 on 06/06/18, [place] to LAD, SVG to diagonal, SVG to PDA - stable; on ASA, Statin, BBlocker; will start Lisinopril 10mg qd from tomorrow AM 2. CHronic Afib - on BBlocker; Will resume Coumadin when ok by CT surgeon. 3. HTN - stable 4. Hyperlipidemia - on Statin 5. Sleep Apnea - MAR reviewed Review of Systems - Review of Systems Constitutional: reports: no symptoms reported EENTM: reports: no symptoms reported Respiratory: reports: no symptoms reported Cardiac (ROS): reports: no symptoms reported ABD/GI: reports: no symptoms reported : reports: no symptoms reported Musculoskeletal: reports: no symptoms reported Skin: reports: no symptoms reported <Shannon León - Last Filed: 06/10/18 11:32> Cardiology Progress Note - Objective Vital Signs Temp Pulse Resp BP Pulse Ox 06/10/18 08:01 98.2 F 59 L 18 125/71 97 06/10/18 04:59 96 06/10/18 04:00 98.6 F 63 16 144/67 H 96 06/10/18 00:22 94 L Weight 241 lb 3.2 oz 06/09/18 06/10/18 06/11/18 06:59 06:59 06:59 Intake Total 1070 1200 Output Total 4155 2795 Balance -3085 -1595 - Labs Result Diagrams: 06/10/18 06:46 06/10/18 06:46 - Assessment/Plan Pt.seen and eval. by me. I agree with nthe A/P by the INSULATOR HELPER.irreg/irreg. mild lower extremity edema.
[2018-06-10 07:31] LABS: #Eosinphils 0.2 thou/uL (0.0-0.7); #Lymphocytes 0.5 thou/uL (1.20-3.40); #Monocytes 0.7 thou/uL (0.11-0.59); #Neutrophils 4.6 thou/uL (1.40-6.50); %Basophils 0.4 % (0.0-1.0); %Eosinophils 2.7 % (0.0-10.0); %Lymphocytes 8.8 % (21.0-51.0); %Monocytes 11.1 % (0.0-10.0); Mean Corpuscular HGB CONC 33.5 g/dL (32.0-36.0); Mean Corpuscular Hemoglobin 32.7 pg (27.0-31.0); Mean Corpuscular Volume 97.6 fL (78.0-98.0); Mean Platelet Volume 7.8 fL (7.4-10.4); Platelet Count 153 thou/uL (130-400); RBC Distribution Width 13.7 % (11.5-14.5); Red Blood Cell (RBC) Count 3.38 mill/uL (4.70-6.10)
[2018-06-10 07:38] LABS: INR-International Normal Ratio 1.2; PTT 39.9 SEC (22.9-36.1); Prothrombin Time 15.1 SEC (12.0-14.7)
[2018-06-10 08:05] LABS: Anion Gap 12 mmol/L (10-20); BUN (Urea Nitrogen) 36 mg/dL (8.4-25.7); Calc. Creatinine Clearance 118 mL/min (70-130); Carbon Dioxide 28 mmol/L (23-31); Chloride 100 mmol/L (98-107); Estimated GFR-MDRD 89; Glucose 97 mg/dL (83-110); Potassium 3.3 mmol/L (3.5-5.1); Sodium 137 mmol/L (136-145)
[2018-06-10] MEDS ORDERED: Sodium Chloride 0.9% 10 ML ONE (08:27)
--- NOTE | 2018-06-10 09:49 | RAD ---
UPRIGHT PORTABLE CHEST 1 VIEW: HISTORY: A 77-year-old male with a history of status post coronary artery bypass graft. COMPARISON: 06/09/2018. FINDINGS: Monitor leads overlie the chest. Right subclavian catheter. Cardiomegaly. Increased linear and int erstitial markings bilaterally. Removal of the previously noted right-sided chest tube. IMPRESSION: Stable vascular congestion with increased markings bilaterally and small pleural effusions without pn eumothorax or other significant acute process. POS: URBIO
[2018-06-10] MEDS: Furosemide 40 MG TAB PO SCH ×2 (09:51→14:13)
[2018-06-10] MEDS: Carvedilol 3.125 MG TAB PO SCH ×2 (09:51→21:40)
[2018-06-10] MEDS: Oxybutynin ER 5 MG TAB PO SCH (09:51)
[2018-06-10] MEDS: Fish Oil 1,000 MG CAP PO SCH ×2 (09:51→21:40)
[2018-06-10] MEDS: Ubidecarenone 50 MG CAP PO SCH (09:51)
[2018-06-10] MEDS: Docusate 100 MG CAP PO SCH ×2 (09:51→21:40)
[2018-06-10] MEDS: Aspirin 81 mg Enteric Coated Tablet PO SCH (09:51)
[2018-06-10] MEDS: Lisinopril 10 MG TAB PO SCH (09:51)
[2018-06-10] MEDS: Multivitamin W/ Minerals 1 TAB PO SCH (09:51)
--- NOTE | 2018-06-10 11:23 | PDOC.CTH ---
Cardiology Progress Note - Subjective pt. seen and eval. by me. No new events over night. s/p CABG. - Objective Vital Signs Temp Pulse Resp BP Pulse Ox 06/10/18 08:01 98.2 F 59 L 18 125/71 97 06/10/18 04:59 96 06/10/18 04:00 98.6 F 63 16 144/67 H 96 06/10/18 00:22 94 L Weight 241 lb 3.2 oz 06/09/18 06/10/18 06/11/18 06:59 06:59 06:59 Intake Total 1070 1200 Output Total 4155 2795 Balance -0045 -5821 - Physical Examination General/Neuro: alert & oriented x3 Neck: no JVD present Lungs: CTA Heart: other: (irreg/irreg.) Abdomen: NT/ND Extremities: other: (mild edema.) - Telemetry Telemetry Rhythm: Afib. rate controlled. - Labs Result Diagrams: 06/10/18 06:46 06/10/18 06:46 - Assessment/Plan 1. CAD with S/P CABG x 3 on 06/06/18, [place] to LAD, SVG to diagonal, SVG to PDA - stable; on ASA, Statin, BBlocker; will start Lisinopril 10mg qd from tomorrow AM 2. CHronic Afib - on BBlocker; Will resume Coumadin when ok by CT surgeon. 3. HTN - stable 4. Hyperlipidemia - on Statin 5. Sleep Apnea - MAR reviewed
[2018-06-10] MEDS: Warfarin Sodium 10 MG TAB PO SCH (17:16)
[2018-06-10] MEDS: Atorvastatin Calcium 10 MG TAB PO SCH (21:40)
[2018-06-11 05:34] LABS: #Eosinphils 0.2 thou/uL (0.0-0.7); #Lymphocytes 0.8 thou/uL (1.20-3.40); #Monocytes 0.6 thou/uL (0.11-0.59); #Neutrophils 4.1 thou/uL (1.40-6.50); %Basophils 0.2 % (0.0-1.0); %Eosinophils 3.9 % (0.0-10.0); %Monocytes 9.7 % (0.0-10.0); %Neutrophils 72.3 % (42.0-75.0); Hemoglobin 10.9 g/dL (14.0-18.0); Mean Corpuscular HGB CONC 34.1 g/dL (32.0-36.0); Mean Corpuscular Hemoglobin 33.4 pg (27.0-31.0); Mean Platelet Volume 7.8 fL (7.4-10.4); Platelet Count 177 thou/uL (130-400); RBC Distribution Width 13.6 % (11.5-14.5); Red Blood Cell (RBC) Count 3.25 mill/uL (4.70-6.10); White Blood Cell (WBC) Count 5.7 thou/uL (4.8-10.8)
[2018-06-11 05:38] LABS: INR-International Normal Ratio 1.2; PTT 39.3 SEC (22.9-36.1); Prothrombin Time 15.6 SEC (12.0-14.7)
[2018-06-11 05:54] LABS: Anion Gap 13 mmol/L (10-20); BUN (Urea Nitrogen) 37 mg/dL (8.4-25.7); Calc. Creatinine Clearance 116 mL/min (70-130); Calcium 8.7 mg/dL (7.8-10.44); Carbon Dioxide 25 mmol/L (23-31); Chloride 99 mmol/L (98-107); Estimated GFR-MDRD 88; Glucose 105 mg/dL (83-110); Potassium 3.2 mmol/L (3.5-5.1); Sodium 134 mmol/L (136-145)
[2018-06-11] MEDS: Oxybutynin ER 5 MG TAB PO SCH (09:23)
[2018-06-11] MEDS: Fish Oil 1,000 MG CAP PO SCH (09:23)
[2018-06-11] MEDS: Ubidecarenone 50 MG CAP PO SCH (09:23)
[2018-06-11] MEDS: Furosemide 40 MG TAB PO SCH ×2 (09:24→14:18)
[2018-06-11] MEDS: Lisinopril 10 MG TAB PO SCH (09:24)
[2018-06-11] MEDS: Carvedilol 3.125 MG TAB PO SCH (09:24)
[2018-06-11] MEDS: Docusate 100 MG CAP PO SCH (09:24)
[2018-06-11] MEDS: Aspirin 81 mg Enteric Coated Tablet PO SCH (09:24)
[2018-06-11] MEDS: Multivitamin W/ Minerals 1 TAB PO SCH (09:25)
[2018-06-11 15:36] VITALS: BP 116/56; TEMP 98.6
[2018-06-11] MEDS ORDERED: Potassium Chloride 20 MEQ TAB PO SCH (16:30)
--- NOTE | 2018-06-11 22:36 | DIS ---
DATE OF ADMISSION: 06/05/2018 DATE OF DISCHARGE: 06/11/2018 PRIMARY DIAGNOSIS: Coronary artery disease. SECONDARY DIAGNOSES: Chronic atrial fibrillation, hypertension, hypercholesterolemia, obstructive sl eep apnea, and venous stasis disease. PROCEDURES PERFORMED: Cardiac catheterization on 06/05/2018 coronary artery bypass grafting x3, left internal mammary artery to distal LAD and reverse greater saphenous vein grafts from aorta to the fi rst diagonal and the PDA on 06/06/2018. HISTORY OF PRESENT ILLNESS AND HOSPITAL COURSE: The patient is a 77-year-old man with chronic atrial fibrillation who had stress test demonstrating anteroapical septal and inferior ischemia as part of a preoperative evaluation for a cystoscopic procedure. Cardiac catheterization demonstrated severe l eft-sided coronary artery disease as well as more modest right coronary system disease. CT scanning demonstrated his thoracic aorta to be quite ectatic but not aneurysmal. He underwent revascularizati on. Findings at the time of surgery were primarily notable for the diffuse involvement of his irizarry pratibha with hard plaque. He was extubated the evening surgery and tolerated discontinuation of his tem porary ventricular pacing. He was transferred to the telemetry anthony. He was started back on beta bl ockade at a lower dose because of some preop bradycardic rhythms. He was diuresed. His chest tubes and pacing wires were removed on postop day #3 and Coumadin was restarted that evening and by today o n postoperative day #5, he is getting around well enough to go on home. He will be discharged to res ume his normal regimen of Coumadin. His Coreg will be cut to 3.125 mg b.i.d. and his lisinopril to 1 0 mg a day for the time being has been written a prescription for Vicodin as needed for pain.
[2018-06-12] MEDS ORDERED: Potassium Chloride 10 MEQ TAB PO SCH (09:00)
[2018-06-12 14:15] LABS: Actual Bicarbonate (HCO3a) 19.5 mEq/L (22-28); Analyzer IN Cardio OR; CO2 Tension 30.7 mmHg (35.0-45.0); Calcium, Ionized 1.11 mmol/L (1.12-1.30); Carboxyhemoglobin (COHb) 0.1 gm% (0.0-3.0); Hemoglobin (Hb) 12.1 g/dL (14.0-18.0); O2 Tension (PaO2) 406.7 mmHg (> 70.0); Potassium - ABG Lab 4.44 mmol/L (3.70-5.30); pH, Arterial 7.42 (7.35-7.45)
[2018-06-12 14:16] LABS: Actual Bicarbonate (HCO3v) 28 mEq/L (22-28); Analyzer IN Cardio OR; Base Excess -0.4 mEq/L (-2.0 to +3.0); Calcium, Ionized 1.01 mmol/L (1.16-1.32); Chloride (ABG LAB) 110 mmol/L (98-106); Hemoglobin (Hb) 9.6 g/dL (12.6-17.4); Potassium - ABG Lab 4.43 mmol/L (3.70-5.30); Sodium 136.4 mmol/L (133-146)
[2018-06-12 14:16] LABS: Actual Bicarbonate (HCO3a) 25.8 mEq/L (22-28); Analyzer IN Cardio OR; Base Excess (BEa) -2.2 mEq/L (-2.0 to +3.0); Calcium, Ionized 1.09 mmol/L (1.12-1.30); Carboxyhemoglobin (COHb) 0.3 gm% (0.0-3.0); Hemoglobin (Hb) 9.8 g/dL (14.0-18.0); O2 Tension (PaO2) 353.3 mmHg (> 70.0); Potassium - ABG Lab 4.59 mmol/L (3.70-5.30)
[2018-06-12 14:16] LABS: Actual Bicarbonate (HCO3a) 20.1 mEq/L (22-28); Analyzer IN Cardio OR; Base Excess (BEa) -5.7 mEq/L (-2.0 to +3.0); CO2 Tension 40.8 mmHg (35.0-45.0); Calcium, Ionized 1.14 mmol/L (1.12-1.30); Carboxyhemoglobin (COHb) 0.9 gm% (0.0-3.0); Hemoglobin (Hb) 11.5 g/dL (14.0-18.0); O2 Tension (PaO2) 379.7 mmHg (> 70.0); Potassium - ABG Lab 3.71 mmol/L (3.70-5.30); pH, Arterial 7.31 (7.35-7.45)
[2018-06-12 14:17] LABS: Analyzer IN Cardio OR; Base Excess (BEa) -9.3 mEq/L (-2.0 to +3.0); CO2 Tension 32.8 mmHg (35.0-45.0); Calcium, Ionized 1.12 mmol/L (1.12-1.30); Carboxyhemoglobin (COHb) 0.3 gm% (0.0-3.0); Hemoglobin (Hb) 9.5 g/dL (14.0-18.0); O2 Tension (PaO2) 349.6 mmHg (> 70.0); pH, Arterial 7.31 (7.35-7.45)
[2018-06-12 14:17] LABS: Actual Bicarbonate (HCO3a) 25.4 mEq/L (22-28); Analyzer IN Cardio OR; Base Excess (BEa) 0.6 mEq/L (-2.0 to +3.0); CO2 Tension 41.1 mmHg (35.0-45.0); Carboxyhemoglobin (COHb) 0.3 gm% (0.0-3.0); Hemoglobin (Hb) 11.3 g/dL (14.0-18.0); O2 Tension (PaO2) 203.5 mmHg (> 70.0); Potassium - ABG Lab 4.08 mmol/L (3.70-5.30); pH, Arterial 7.41 (7.35-7.45)
[2018-06-12 14:17] LABS: Actual Bicarbonate (HCO3a) 31.7 mEq/L (22-28); Analyzer IN Cardio OR; Base Excess (BEa) 4.2 mEq/L (-2.0 to +3.0); Calcium, Ionized 1.06 mmol/L (1.12-1.30); Carboxyhemoglobin (COHb) 0.3 gm% (0.0-3.0); Hemoglobin (Hb) 9.1 g/dL (14.0-18.0); O2 Tension (PaO2) 397.7 mmHg (> 70.0); Potassium - ABG Lab 4.55 mmol/L (3.70-5.30)
[2018-06-12 14:35] LABS: Puncture Site ALINE
[2018-06-12 14:36] LABS: CO2 Tension 65.7 mmHg (35.0-45.0)
[2018-06-12 14:37] LABS: Puncture Site ALINE
[2018-06-12 14:37] LABS: Puncture Site ALINE
[2018-06-12 14:38] LABS: pH (venous) 7.24 (7.32-7.43)
[2018-06-12 14:40] LABS: CO2 Tension 61.5 mmHg (35.0-45.0); pH, Arterial 7.24 (7.35-7.45)
[2018-06-12 14:41] LABS: Puncture Site ALINE
[2018-06-12 14:41] LABS: Puncture Site ALINE
[2018-06-12 14:41] LABS: Puncture Site ALINE
== END 2018-06-11 17:12 | disposition home or self-care (01) | DRG 234 ==
LOC: CCL 05:51 → 2NO 14:19 → CCU 06-06 12:18 → 2NO 06-07 11:08
PROVIDERS: ADMIT Internal Medicine Cardiovascular Disease; ATTEND Internal Medicine Cardiovascular Disease
PROC: 4A023N7 Measurement of Cardiac Sampling and Pressure, Left Heart, Percutaneous Approach (ICD-10-PCS; 2018-06-05)
PROC: B2111ZZ Fluoroscopy of Multiple Coronary Arteries using Low Osmolar Contrast (ICD-10-PCS; 2018-06-05)
PROC: B2151ZZ Fluoroscopy of Left Heart using Low Osmolar Contrast (ICD-10-PCS; 2018-06-05)
PROC: 02100Z9 Bypass Coronary Artery, One Artery from Left Internal Mammary, Open Approach (ICD-10-PCS; principal; 2018-06-06)
PROC: 021109W Bypass Coronary Artery, Two Arteries from Aorta with Autologous Venous Tissue, Open Approach (ICD-10-PCS; 2018-06-06)
DX: I25.10 Atherosclerotic heart disease of native coronary artery without angina pectoris (principal); J93.9 Pneumothorax, unspecified; I10 Essential (primary) hypertension; E78.1 Pure hyperglyceridemia; G47.33 Obstructive sleep apnea (adult) (pediatric); I48.2 Chronic atrial fibrillation; I87.8 Other specified disorders of veins; Z79.899 Other long term (current) drug therapy; Z79.01 Long term (current) use of anticoagulants; Z79.82 Long term (current) use of aspirin; E78.00 Pure hypercholesterolemia, unspecified
CPT/HCPCS: 36415; 36416; 71045; 71250; 80048; 80061; 82805; 85025; 85347; 85610; 85730; 86850; 86900; 86901; 93005; 93010; 93458; 93798; 94002; 94150; 99152; 99153; C1769; J0360; J1642; J1644; J1815; J1885; J1940; J2001; J2150; J2250; J2440; J2704; J2720; J3010; J3370; J3475; J3480; J7050; P9045; Q0162; S0017; S0028

== ENCOUNTER 2018-08-02 13:25 | Outpatient (CLI) | payer MEDICARE | END 2018-08-02 13:26 | disposition home or self-care (01) | LOC: CP 13:25 | PROVIDERS: ATTEND Internal Medicine | DX: G47.33 Obstructive sleep apnea (adult) (pediatric) (principal); R06.00 Dyspnea, unspecified | CPT/HCPCS: 94060; 94727; 94729 ==

== ENCOUNTER 2018-08-07 09:51 | Outpatient (CLI) | payer MEDICARE ==
[2018-08-07 16:40] LABS: Hemoglobin 13.4 g/dL (14.0-18.0); Mean Corpuscular Hemoglobin 32.1 pg (27.0-31.0); Mean Platelet Volume 7.5 fL (7.4-10.4); Platelet Count 162 thou/uL (130-400); RBC Distribution Width 13.6 % (11.5-14.5); Red Blood Cell (RBC) Count 4.18 mill/uL (4.70-6.10); White Blood Cell (WBC) Count 4.4 thou/uL (4.8-10.8)
[2018-08-07 16:47] LABS: INR-International Normal Ratio 2.4; PTT 45.7 SEC (22.9-36.1); Prothrombin Time 26.4 SEC (12.0-14.7)
[2018-08-07 17:03] LABS: Anion Gap 14 mmol/L (10-20); BUN (Urea Nitrogen) 25 mg/dL (8.4-25.7); Calc. Creatinine Clearance 0 mL/min (70-130); Calcium 9.6 mg/dL (7.8-10.44); Carbon Dioxide 29 mmol/L (23-31); Chloride 105 mmol/L (98-107); Estimated GFR-MDRD 88; Glucose 108 mg/dL (83-110); Potassium 4.5 mmol/L (3.5-5.1); Sodium 143 mmol/L (136-145)
== END 2018-08-07 09:52 | disposition home or self-care (01) ==
LOC: LABBT 09:51
PROVIDERS: ATTEND Urology
DX: Z01.812 Encounter for preprocedural laboratory examination (principal); D49.4 Neoplasm of unspecified behavior of bladder
CPT/HCPCS: 80048; 85027; 85610; 85730; 87086

== ENCOUNTER 2018-08-13 10:27 | Day surgery (SDC) | payer MEDICARE ==
[2018-08-07 15:25] VITALS: BMI 33.1
[2018-08-13] MEDS ORDERED: CEFAZOLIN 2 GM/50 ML BAG ONE (12:33)
[2018-08-13 12:46] LABS: INR-International Normal Ratio 1.2; Prothrombin Time 15.1 SEC (12.0-14.7)
[2018-08-13] MEDS ORDERED: Lidocaine 1% PF 5 ML VIAL ONE (14:04)
[2018-08-13] MEDS ORDERED: PROPOFOL 200 MG/20 ML VIAL ONE (14:04)
[2018-08-13] MEDS ORDERED: Ondansetron PF 4 MG/2 ML Vial ONE (14:04)
[2018-08-13] MEDS ORDERED: Iothalamate Meglumine 60% 50 ML VIAL FS ONE (14:23)
[2018-08-13] MEDS ORDERED: Fentanyl 100 MCG/2 ML VIAL ONE (14:23)
--- NOTE | 2018-08-13 16:46 | RAD ---
RETROGRADE IVP: INDICATIONS: History of cystoscopy. FINDINGS: The submitted images demonstrate retrograde opacification of the right renal collecting system. Ther e is a focal oval filling defect seen at the right UPJ that does not persist on subsequent images. A n additional oval filling defect is seen on subsequent images in the mid right ureter, measuring appr oximately 5 mm, which may reflect an additional small air bubble. Canalization of the left renal col lecting system with retrograde opacification demonstrates no focal filling defect. No hydronephrosis is evident. The final submitted images reveal no significant post void residual. A small amount of contrast remains within the region of the renal calices. IMPRESSION: 1. Small focal filling defects within the right renal collecting system are most suspicious for smal l air bubbles. No appreciable radiodensities are noted within this region to suggest these are small stones. 2. Left renal collecting system appears within normal limits. 3. No significant obstruction. POS: CHER
--- NOTE | 2018-08-13 23:13 | OP ---
DATE OF PROCEDURE: 08/13/2018 PREOPERATIVE DIAGNOSIS: Recurrent bladder tumor, right wall. POSTOPERATIVE DIAGNOSIS: Recurrent bladder tumor, right wall. PROCEDURE PERFORMED: Cysto bilateral retrogrades and transurethral resection of bladder tumour. ANESTHESIA: General. ESTIMATED BLOOD LOSS: Minimal. DRAINS PLACED: 18-Bermudian Whittington catheter. FINDINGS: There was mild meatal stenosis. There was no other evidence of stricture disease. There was an enlarged prostate gland. There were two ureteral orifices with clear efflux. Retrograde studies failed to show any persistent filling defects. He has an air bubble in the proximal right ureter. He has perhaps probable complex right upper pole infundibulum and calyceal system. He had slightly greater than 2 cm patch of abnormal tissues not really papillary in terms of going out into the bladder, but area of papillations that itself was flat. On the right wall, we took three specimen bites through this taking most of it out with gyrus cutting loop and then used the cautery to cauterize this side as well as surrounding mucosa. OPERATIVE TECHNIQUE: Obtained written and verbal consent from the patient, after receiving IV antibiotics, he was taken to the operating suite. He was placed in supine position on the treatment table. PlexiPulses were placed on his lower extremities and turned on. He was given a general anesthetic and oral obturator intubation. He was placed in the dorsal lithotomy position and sterilely prepped and draped. Cystoscopy was performed with a 22-[place]ian sheath. This was well lubricated and passed under direct vision through the male urethra into the urinary bladder with aid of video camera and monitor and 30-degree lens. The bladder was filled and emptied number of times and examined both the 30 and 70 degree lens with the findings above. Going back to the 30 degree lens, we brought in 5-B[place]ian [place] tip catheter, flushed with contrast. Inhalation Therapy Teacher KUB was taken with the fluoroscopy unit. Initially, we retrograded the right ureter and upper collecting system and then the left by injecting probably about 10 mL on both sides filling up the ureters in the collecting system on each side. The findings were as above. We let these films drain and both sides drained well. There was no gross hematuria from the drainage. We then went ahead and brought in our gyrus system. Our instruments were removed and we passed a visual obturator, 30 degree lens and a 24-Bermudian resectoscope sheath and it was passed under direct vision with a 30-degree lens into the bladder. We then brought in an Arellano resectoscope with gyrus generator, gyrus bladder tumor loop, and we swiped across the abnormal area with three swipes, retrieving majority of this and then using cautery to control hemostasis and cauterize the surrounding edges of the mucosa. There was no evidence of any remaining tumor. At this point, the instruments were removed. Whittington catheter was placed about 20 mL of sterile water placed in the balloon. It was irrigating clear urine and was hooked up to the leg bag. He was taken out of the dorsal lithotomy position. He was awakened. He was extubated. He was taken by darline to recovery room. Job ID: [id number]
== END 2018-08-13 17:40 | disposition home or self-care (01) ==
LOC: SDC 10:27
PROVIDERS: ATTEND Urology
PROC: 0T5B8ZZ Destruction of Bladder, Via Natural or Artificial Opening Endoscopic (ICD-10-PCS; principal; 2018-08-13)
DX: C67.2 Malignant neoplasm of lateral wall of bladder (principal); N35.911 Unspecified urethral stricture, male, meatal; N40.0 Benign prostatic hyperplasia without lower urinary tract symptoms; I48.91 Unspecified atrial fibrillation; I25.10 Atherosclerotic heart disease of native coronary artery without angina pectoris; I10 Essential (primary) hypertension; Z79.01 Long term (current) use of anticoagulants; Z79.899 Other long term (current) drug therapy; Z95.1 Presence of aortocoronary bypass graft; Z95.5 Presence of coronary angioplasty implant and graft; Z98.890 Other specified postprocedural states
CPT/HCPCS: 52235; 74420; 85610; 88305; C1758; J2001; J2405; J2704; J3010; Q9961

== ENCOUNTER 2018-08-14 16:24 | Inpatient (IN) | payer MEDICARE ==
[~2018-08-14 16:24] MED LIST: ISOVUE-370 76%-LOCM 1 ML ONE
[2018-08-14 17:41] LABS: Bilirubin Negative (Negative); Blood, Urine Large (Negative); Clarity CLEAR (Clear); Glucose, Urine (Dipstick) Negative (Negative); Leukocyte Small (Negative); Nitrite Negative (Negative); Protein, Urine (Dipstick) 100 mg/dL (Neg-Trace); Specific Gravity, Urine 1.012 (1.002-1.036)
[2018-08-14 17:44] LABS: Bacteria/HPF None Seen HPF (None Seen); Hyaline Casts/LPF 4-6 HYALINE CAST LPF (0-3 Hyaline); Pathc Cast-AUWi Flag 0.87 (0-2.49); RBC/HPF GREATER THAN 50-TNTC HPF (0-3); Squamous Epithelial 0-3 HPF (0-3)
[2018-08-14 17:45] LABS: #Basophils 0.1 thou/uL (0.0-0.2); #Eosinphils 0.1 thou/uL (0.0-0.7); #Lymphocytes 0.1 thou/uL (1.20-3.40); #Neutrophils 3.5 thou/uL (1.40-6.50); %Basophils 1.7 % (0.0-1.0); %Eosinophils 1.4 % (0.0-10.0); %Lymphocytes 3.4 % (21.0-51.0); %Monocytes 0.8 % (0.0-10.0); %Neutrophils 92.8 % (42.0-75.0); Hemoglobin 13.4 g/dL (14.0-18.0); Mean Corpuscular HGB CONC 32.4 g/dL (32.0-36.0); Mean Corpuscular Hemoglobin 31.7 pg (27.0-31.0); Mean Corpuscular Volume 97.8 fL (78.0-98.0); Mean Platelet Volume 7.3 fL (7.4-10.4); Platelet Count 101 thou/uL (130-400); RBC Distribution Width 13.6 % (11.5-14.5); Red Blood Cell (RBC) Count 4.21 mill/uL (4.70-6.10); White Blood Cell (WBC) Count 3.8 thou/uL (4.8-10.8)
[2018-08-14 17:52] LABS: ALT (SGPT) 16 U/L (8-55); AST (SGOT) 27 U/L (5-34); Albumin 3.7 g/dL (3.4-4.8); Alkaline Phosphatase 150 U/L (40-150); Anion Gap 12 mmol/L (10-20); BUN (Urea Nitrogen) 16 mg/dL (8.4-25.7); Bilirubin, Total 1.4 mg/dL (0.2-1.2); Calc. Creatinine Clearance 0 mL/min (70-130); Calcium 9.8 mg/dL (7.8-10.44); Carbon Dioxide 26 mmol/L (23-31); Chloride 104 mmol/L (98-107); Estimated GFR-MDRD 84; Globulin 3.1 g/dL (2.4-3.5); Glucose 88 mg/dL (83-110); Lipase 26 U/L (8-78); Potassium 3.8 mmol/L (3.5-5.1); Protein, Total 6.8 g/dL (5.8-8.1); Sodium 138 mmol/L (136-145)
[2018-08-14] MEDS ORDERED: Acetaminophen 500 MG TAB ONE (17:59)
[2018-08-14] MEDS ORDERED: Sodium Chloride 0.9% 100 ML ONE ×2 (18:01→21:03)
[2018-08-14] MEDS ORDERED: cefTRIAXone\\ROCEPHIN 2 GM VIAL ONE (18:01)
[2018-08-14 18:06] LABS: MDiff Complete? YES; Ovalocytes SLIGHT = 2-5 cells (100X) (0-1/hpf); Platelet Morphology Comment Appears Decreased; Polychromasia SLIGHT = 2-3 cells (100X) (0-2/hpf)
--- NOTE | 2018-08-14 19:53 | RAD ---
1 VIEW CHEST: Date: 08/14/18 COMPARISON: 06/10/18. HISTORY: Sepsis. FINDINGS: There are sternotomy wires and cardiomegaly. Pulmonary vessels are within normal limits. There appear s to be infiltrate superimposed upon chronic change. Costophrenic angles are clear. No pneumothorax. IMPRESSION: 1. Cardiomegaly. 2. Increased interstitial opacities which are presumed to represent infiltrate. A component of edema due to congestive heart failure cannot be excluded. Continued surveillance is recommended. POS: PPP
--- NOTE | 2018-08-14 20:33 | CT ---
CT ABDOMEN WITH CONTRAST: CT PELVIS WITH CONTRAST: HISTORY: Fever. Cough. Weakness. COMPARISON: None. TECHNIQUE: An abdomen and pelvis CT is performed with IV contrast. Coronal reformatted images are submitted for interpretation. FINDINGS: ABDOMEN: Chronic changes in the lung base are suspected. There is a small left-sided effusion as we ll. The heart is enlarged. No significant pericardial fluid. The descending thoracic aorta and abd ominal aorta demonstrate atherosclerotic disease. No periaortic fat stranding. The portal vein is p atent. Unremarkable gallbladder. Mild nodularity of the liver. Correlate for a possible component of cirrhotic change. The spleen is mildly enlarged, measuring 14.5 cm. Splenic varices are noted. The pancreas and adrenal glands are unremarkable. No gastrohepatic, retrocrural, or periportal lymph adenopathy. Symmetric enhancement of the kidneys. Bilaterally, no obstructive uropathy. No mesente omar mass, lymphadenopathy, free air, or free fluid. Limited evaluation of the alimentary canal due t o lack of oral contrast. The gastric mucosa, duodenum, and multiple normal caliber small bowel loops are identified. No evidence of small bowel distention. The ileocecal junction is unremarkable. No rmal caliber appendix. Significant amount of fecal material throughout the colon. Correlate for a c omponent of constipation. There is extensive diverticulosis throughout the colon. Definite divertic ulitis is not appreciated. PELVIS: A Whittington catheter decompresses the urinary bladder. No pelvic mass, lymphadenopathy, free ai r, or free fluid. No lytic or blastic lesions in the osseous structures. There is an isodensity in the anterior left hemipelvis, measuring 2.5 cm. The lesion is of uncertain significance and etiology. IMPRESSION: 1. Diverticulosis, without evidence of diverticulitis. 2. Normal caliber appendix. 3. Cirrhotic changes of the liver. There is mild splenomegaly and splenic varices. POS: PPP
[2018-08-14] MEDS ORDERED: Acetaminophen 325 MG TAB PO PRN (21:02)
[2018-08-14] MEDS ORDERED: Ondansetron PF 4 MG/2 ML Vial IVP PRN (21:02)
[2018-08-14] MEDS ORDERED: Piperacillin/Tazobactam 4.5 GM VIAL ONE (21:03)
[2018-08-14 21:25] LABS: Lactic Acid 2.1 mmol/L (0.5-2.2)
--- NOTE | 2018-08-14 22:58 | HP ---
PRIMARY CARE PHYSICIAN: Nestor Napier MD. UROLOGIST: Dr. Sharma. The patient had procedure yesterday and looks like it was bladder polys removal. CODE STATUS: Full code. TIME OF EVALUATION: 9 p.m. CHIEF COMPLAINT: Change in mental status. HISTORY OF PRESENT ILLNESS: This is a 77-year-old male patient with past medical history of coronary artery disease, status post CABG 2 months ago, atrial fibrillation, hyperlipidemia, chronic anticoagulation, came to the hospital after the son found the patient being confused, unable to manage the TV. He reported that this is very unusual for this patient, his baseline is able to function properly and do activities of daily living by himself. The symptoms were noticed around 1 p.m. The symptoms were of sudden onset associated with nausea, weakness, no clear triggers, symptoms improved by self. It was noted that the patient had bladder polyps removed yesterday by Dr. Sharma. Also, chest x-ray had shown possible pneumonia and that is the reason why the patient has been placed in the hospital. Symptoms were severe. The patient is unable to function properly due to change in mental status. REVIEW OF SYSTEMS: CONSTITUTIONAL: The patient reported some chills, generalized weakness. RESPIRATORY: The patient reported cough. Also, he has some chronic cough. No sputum production. The patient reported shortness of breath. CARDIOVASCULAR: No chest pain or palpitation. Gastrointestinal: The patient reported nausea. No vomiting. No diarrhea or abdominal pain. PATROL CONDUCTOR: Confusion. No dizziness, headache, feeling lightheaded. GENITOURINARY: The patient has a Whittington after procedure. No other significant urinary symptoms. EXTREMITIES: Bilateral chronic leg swelling with change in color. All other systems were reviewed and negative except for the findings mentioned above. PAST MEDICAL HISTORY: Mentioned in the HPI. PAST SURGICAL HISTORY: Triple CABG done two months ago. Bladder polyp removal done yesterday. PSYCHIATRIC HISTORY: No previous psych history. SOCIAL HISTORY: Lives with family. No alcohol. No drugs. No smoking history. FAMILY HISTORY: Reviewed and noncontributory for current presentation. KNOWN ALLERGIES: No known drug allergies reported. MEDICATIONS: 1. Lisinopril. 2. Carvedilol. 3. Jantoven. 4. Simvastatin. 5. Aspirin. 6. Oxybutynin. PHYSICAL EXAMINATION: VITAL SIGNS: On presentation, blood pressure 166/79 with heart rate 107, respiratory rate was 16, temperature 103.2, pain 0/10, oxygen saturation 96 on room air. GENERAL APPEARANCE: The patient is alert, seems to be oriented, as per son, he has been confused and not in acute distress. HEENT: Eyes, normal conjunctivae. Moist oral mucosa. Anicteric. No JVD. RESPIRATORY: Bilateral air entry. No rales. No wheezing. Symmetric expansion. CARDIOVASCULAR: Normal rate, regular rhythm. No murmurs. No gallops. Bilateral leg edema with chronic trophic and color changes in bilateral legs. ABDOMEN: Soft. Normal bowel sounds. MUSCULOSKELETAL: Baseline range of motion and strength. No tenderness. SKIN: Warm, intact. The patient does have bilateral lower extremities chronic change in color and texture. Peripheral pulses are present. Capillary refill seems to intact. NEUROLOGIC: The patient has been confused, seems to be oriented by the time of my examination, but there has been prudency in the mentation. Baseline speech. PSYCHIATRIC: The patient is in good mood. No anxiety. LABORATORY DATA: EKG was reviewed. The patient has atrial fibrillation with some PVCs, rate 85, QRS 130, QT corrected 504, RBBB. Chest x-ray was reviewed, showed cardiomegaly and increased interstitial opacities which are presumed to represent infiltrate. A component of edema due to congestive heart failure cannot be excluded. Continued surveillance is recommended. CT abdomen and pelvis showed diverticulosis without evidence of diverticulitis. Normal caliber appendix. Cirrhotic changes of the liver. There is mild splenomegaly and splenic varices. Hematology; white count 3.8, hemoglobin 13.4, MCV 97.8, platelet count 101. Sodium 138, potassium 3.8, chloride 104, carbon dioxide 26, anion gap 12, BUN 16, creatinine 0.8, GFR 84, glucose 88, lactic acid 2.5 and repeat 2.1, calcium 9.8, total bilirubin 1.4, AST 27, ALT 16, alkaline phosphatase 150. Serum total protein 6.8, albumin 3.7, globulin 3.11, albumin to globulin ratio 1.2. Lipase 26. Urine was done. The patient has a positive urine with white count 11 to 20 and RBCs greater than 15. ASSESSMENT AND PLAN: The patient will be placed in the hospital with following medical problems. 1. Possible sepsis. The patient has fever, the patient has leukopenia. The patient has been started on antibiotics. For that reason, broad-spectrum antibiotics. We will follow cultures for any adjustment needed per sensitivity. The possible source could be urinary tract infection. The patient has a positive white count in the urine, had a urological procedure yesterday, possible source is possible pneumonia seen on chest x-ray. The patient was intubated during procedure reported by urologist to ER. 2. Possible healthcare-associated pneumonia. The patient received intubation yesterday for procedure. There is a positive chest x-ray. The patient has been placed on Vanco and Zosyn. We will follow cultures. We will treat as per sensitivity. 3. Possible urinary tract infection. The patient has positive urine. Had procedure yesterday, it remains a possibility. We will follow cultures. 4. Atrial fibrillation with rate control. This is a chronic problem, reconcile home medications. 5. Chronic anticoagulation. The patient is on warfarin, has been on hold due to procedure. We will continue it on hold for now and only is otherwise recommended by Urology. 6. Lactic acidosis. Lactic acid 2.5, came down to 2.1. This could be secondary to sepsis. We will treat underlying condition. 7. Past history of coronary artery disease, status post coronary artery bypass graft 1 month ago, this problem is chronic, seems to be stable, reconcile home medications. 8. Deep venous thrombosis prophylaxis. The patient has contraindication for anticoagulation. The patient has peripheral vascular disease. We will restart on anticoagulation whenever cleared by Surgery. Job ID: [id number]
[2018-08-15 00:49] VITALS: BMI 33.5
[2018-08-15] MEDS: Vancomycin HCl 1.5 GM in Sodium Chloride 0.9% 250 ML 300 ML IVPB SCH ×2 (02:49→14:18)
[2018-08-15 04:43] LABS: #Eosinphils 0.1 thou/uL (0.0-0.7); #Lymphocytes 0.5 thou/uL (1.20-3.40); #Monocytes 0.6 thou/uL (0.11-0.59); #Neutrophils 6.7 thou/uL (1.40-6.50); %Basophils 0.1 % (0.0-1.0); %Eosinophils 0.8 % (0.0-10.0); %Lymphocytes 5.8 % (21.0-51.0); %Monocytes 7.6 % (0.0-10.0); %Neutrophils 85.6 % (42.0-75.0); Hemoglobin 12.6 g/dL (14.0-18.0); Mean Corpuscular HGB CONC 33.7 g/dL (32.0-36.0); Mean Corpuscular Hemoglobin 33.4 pg (27.0-31.0); Mean Corpuscular Volume 99.1 fL (78.0-98.0); Mean Platelet Volume 7.9 fL (7.4-10.4); Platelet Count 93 thou/uL (130-400); RBC Distribution Width 13.6 % (11.5-14.5); Red Blood Cell (RBC) Count 3.78 mill/uL (4.70-6.10); White Blood Cell (WBC) Count 7.8 thou/uL (4.8-10.8)
[2018-08-15 05:05] LABS: Anion Gap 16 mmol/L (10-20); BUN (Urea Nitrogen) 19 mg/dL (8.4-25.7); Calc. Creatinine Clearance 101 mL/min (70-130); Calcium 8.9 mg/dL (7.8-10.44); Carbon Dioxide 21 mmol/L (23-31); Chloride 106 mmol/L (98-107); Estimated GFR-MDRD 77; Glucose 118 mg/dL (83-110); Potassium 3.7 mmol/L (3.5-5.1); Sodium 139 mmol/L (136-145)
[2018-08-15] MEDS: Piperacillin/Tazobactam 4.5 GM in Sodium Chloride 0.9% 100 ML IVPB SCH ×3 (05:29→21:27)
[2018-08-15 13:27] LABS: INR-International Normal Ratio 1.3; Prothrombin Time 16.6 SEC (12.0-14.7)
--- NOTE | 2018-08-15 13:38 | PDOC.PN ---
- Subjective Encounter Start Date: 08/15/18 Encounter Start Time: 13:00 Subjective: no sob, feels better -: at bedside - Objective Resuscitation Status - Order Detail: 08/14/18 21:02 Resuscitation Status Routine Resuscitation Status: FULL: Full Resuscitation MAR Reviewed: Yes Vital Signs & Weight: Vital Signs (12 hours) Temp Pulse Resp BP Pulse Ox 08/15/18 13:16 98 F 55 L 16 152/70 H 97 08/15/18 11:55 98.7 F 48 L 16 144/64 H 98 08/15/18 07:00 98.6 F 47 L 18 141/66 H 08/15/18 02:57 98.7 F 53 L 20 136/75 95 Weight Weight 233 lb 11.04 oz I&O: 08/14/18 08/15/18 08/16/18 06:59 06:59 06:59 Intake Total 720 Balance 720 Result Diagrams: 08/15/18 04:06 08/15/18 04:06 Phys Exam - Physical Examination HEENT: PERRLA, moist MMs Neck: no JVD, supple Respiratory: no wheezing, no rales Cardiovascular: RRR, no significant murmur Gastrointestinal: soft, non-tender, positive bowel sounds Musculoskeletal: no edema, pulses present Neurological: non-focal, moves all 4 limbs Psychiatric: normal affect, A&O x 3 Dx/Plan (1) PNA (pneumonia) Code(s): J18.9 - PNEUMONIA, UNSPECIFIED ORGANISM Status: Acute Qualifiers: Pneumonia type: due to group B Streptococcus Laterality: right (2) HTN (hypertension) Code(s): I10 - ESSENTIAL (PRIMARY) HYPERTENSION Status: Chronic Qualifiers: Hypertension type: essential hypertension Qualified Code(s): I10 - Essential (primary) hypertension (3) Transitional cell bladder cancer Code(s): C67.9 - MALIGNANT NEOPLASM OF BLADDER, UNSPECIFIED Status: Acute Comment: recurrent, s/p turbt on 08/13/2018 (4) CAD (coronary artery disease) Code(s): I25.10 - ATHSCL HEART DISEASE OF [place] CORONARY ARTERY W/O ANG PCTRS Status: Chronic Qualifiers: Coronary Disease-Associated Artery/Lesion type: bypass graft [place] vs. transplanted heart: [place] heart Associated angina: without angina Qualified Code(s): I25.810 - Atherosclerosis of coronary artery bypass graft(s) without angina pectoris Comment: 05/2018 (5) DM type 2 (diabetes mellitus, type 2) Status: Chronic Qualifiers: Diabetes mellitus ferry terminal agent insulin use: without ferry terminal agent use Diabetes mellitus complication status: with unspecified complications Qualified Code(s) : E11.8 - Type 2 diabetes mellitus with unspecified complications Comment: diet controlled (6) PVD (peripheral vascular disease) Code(s): I73.9 - PERIPHERAL VASCULAR DISEASE, UNSPECIFIED Status: Chronic (7) Cirrhosis Code(s): K74.60 - UNSPECIFIED CIRRHOSIS OF LIVER Status: Chronic Qualifiers: Hepatic cirrhosis type: unspecified hepatic cirrhosis Ascites presence: without ascites Qualified Code(s): K74.60 - Unspecified cirrhosis of liver (8) Atrial fibrillation Code(s): I48.91 - UNSPECIFIED ATRIAL FIBRILLATION Status: Chronic (9) Thrombocytopenia Code(s): D69.6 - THROMBOCYTOPENIA, UNSPECIFIED Status: Chronic - Plan is on vanc and zosyn -: prelim blood cs 1/2 is growing strep pneu -: will obtain ct chest -: continue home meds including coumadin, oxybutynin & lisinopril -: coreg held due to bradycardia * . Review of Systems - Medications/Allergies Allergies/Adverse Reactions: Allergies Allergy/AdvReac Type Severity Reaction Status Date / Time No Known Allergies Allergy Verified 08/15/18 02:21 Medications: Current Medications Acetaminophen (Tylenol) 650 mg PO Q4H PRN PRN Reason: Headache/Fever/Mild Pain (1-3) Albuterol/Ipratropium (Duoneb) 3 ml NEB [id number] FELICITY Piperacillin Sod/Tazobactam (Sod 4.5 gm/ Sodium Chloride) 100 mls @ 200 mls/hr IVPB 0500,1300,2100 [facility] Last Admin: 08/15/18 11:57 Dose: 100 mls Vancomycin HCl 1.5 gm/ Sodium (Chloride) 300 mls @ 200 mls/hr IVPB 0300,1500 [facility] Last Admin: 08/15/18 02:49 Dose: 300 mls Lisinopril (Zestril) 10 mg PO QAM [facility] Miscellaneous Medication (Pharmacy To Dose) 1 each IVPB PRN PRN PRN Reason: Pharmacy to dose Ondansetron HCl (Zofran) 4 mg IVP Q6H PRN PRN Reason: Nausea/Vomiting Oxybutynin Chloride (Ditropan Xl) 15 mg PO DAILY [facility] Sodium Chloride (Flush - Normal Saline) 10 ml IVF Q12HR [facility] Last Admin: 08/15/18 08:29 Dose: 10 ml Sodium Chloride (Flush - Normal Saline) 10 ml IVF PRN PRN PRN Reason: Saline Flush Warfarin Sodium (Coumadin) 10 mg PO TuTa [facility] Warfarin Sodium (Coumadin) 7.5 mg PO SuMoWeFr FELICITY
--- NOTE | 2018-08-15 15:24 | CT ---
NONCONTRAST CT THORAX: Date: 08-15-18 History: Bladder surgery one week ago secondary to cancer. Patient has weakness and vomiting. Bactere cornelius. Comparison: 06-05-18 FINDINGS: There has been interval post-surgical changes related to CABG. Linear densities are seen within the a nterior/superior mediastinum which may be related to areas of scarring secondary to prior CABG. Dense vascular calcifications are seen in the coronary arteries as well as involving the thoracic aorta. L ack of intravenous contrast does limit evaluation of the vascular structures and mediastinal structur es. The ascending thoracic aorta is ectatic. Mildly enlarged mediastinal lymph nodes with lymph node in the subcarinal region measuring 1.3 cm in short axis dimension with a right paratracheal lymph node measuring 1.4 cm in short axis dimension. P rominent mediastinal lymph nodes were present on the prior exam as well. There is mild increased numb er of additional lymph nodes within the mediastinum. There is trace pericardial effusion with borderline enlargement of the heart. A small left and very tiny right pleural effusions are identified with associated passive atelectasis . There are few scattered linear densities again present within the lungs similar to the prior study which may relate to areas of mild scarring. There is mild interstitial peripheral prominence at each lung base, stable from the prior study and likely related to mild chronic lung changes. No discrete p ulmonary nodule or mass is seen in the lungs bilaterally. A few calcified granuloma are seen at the l eft lung base. There is a tiny subcentimeter hypodense lesion within the anterior aspect left lobe of the thyroid gl and. Vascular calcifications are seen in the upper abdomen. The upper abdomen otherwise demonstrates a fermin ssly normal nonenhanced CT appearance. Degenerative changes are present in the spine. IMPRESSION: 1. Small left and tiny right pleural effusions with associated passive atelectasis. 2. Mild chronic lung changes. 3. No discrete noncalcified pulmonary nodule or area of consolidation is seen. There are no findings to suggest pneumonia or empyema. 4. Nonspecific mediastinal lymphadenopathy, also seen on the prior exam. 5. Dense vascular calcifications involving the coronary arteries and thoracic aorta. The ascending th oracic aorta is ectatic, and the distal descending thoracic aorta is tortuous. 6. Upper limits normal to borderline cardiomegaly. 7. Interval post-surgical changes related to CABG with linear low density areas in the anterior super ior mediastinum which is probably related to scarring and post-surgical changes. No defined fluid col lection is seen in this region. 8. Subcentimeter difficult to characterize hypodense lesion left lobe of the thyroid gland. POS: C
[2018-08-15] MEDS: Warfarin Sodium 2 MG TAB PO SCH (17:00)
[2018-08-15] MEDS: Warfarin Sodium 5 MG TAB PO SCH (17:00)
[2018-08-15] MEDS ORDERED: Carvedilol 3.125 MG TAB PO SCH (21:00)
[2018-08-15] MEDS ORDERED: Nitrofurantoin Monohyd/M-Cryst 100 MG CAP PO SCH ×2 (21:00)
[2018-08-16 02:09] LABS: INR-International Normal Ratio 1.3; Prothrombin Time 16.7 SEC (12.0-14.7)
[2018-08-16 02:21] LABS: Vancomycin, Trough 14.4 ug/mL
[2018-08-16] MEDS: Vancomycin HCl 1.5 GM in Sodium Chloride 0.9% 250 ML 300 ML IVPB SCH ×3 (02:59→15:46)
[2018-08-16] MEDS: Piperacillin/Tazobactam 4.5 GM in Sodium Chloride 0.9% 100 ML IVPB SCH ×3 (06:01→20:39)
[2018-08-16] MEDS ORDERED: OXYBUTYNIN CHLORIDE PO SCH (09:00)
[2018-08-16] MEDS: Lisinopril 10 MG TAB PO SCH (09:37)
--- NOTE | 2018-08-16 11:43 | PDOC.PN ---
- Subjective Encounter Start Date: 08/16/18 Encounter Start Time: 10:15 Subjective: no sob, feels better -: is amb in room - Objective Resuscitation Status - Order Detail: 08/14/18 21:02 Resuscitation Status Routine Resuscitation Status: FULL: Full Resuscitation MAR Reviewed: Yes Vital Signs & Weight: Vital Signs (12 hours) Temp Pulse Resp BP BP Pulse Ox 08/16/18 11:22 98.4 F 52 L 18 160/80 H 94 L 08/16/18 09:37 156/81 H 08/16/18 08:00 97.8 F 59 L 18 156/81 H 95 08/16/18 06:55 60 16 98 08/16/18 04:12 97.9 F 60 18 169/96 H 98 08/16/18 00:43 63 12 95 08/16/18 00:00 98.2 F 63 18 148/68 H 95 Weight Weight 233 lb 11.04 oz I&O: 08/15/18 08/16/18 08/17/18 06:59 06:59 06:59 Intake Total 2480 Output Total 1525 Balance 955 Result Diagrams: 08/15/18 04:06 08/15/18 04:06 Phys Exam - Physical Examination HEENT: PERRLA, sclera anicteric Neck: no JVD, supple Respiratory: no wheezing, no rales Cardiovascular: RRR, no significant murmur Gastrointestinal: soft, non-tender, positive bowel sounds Musculoskeletal: no edema, pulses present Neurological: non-focal, moves all 4 limbs Psychiatric: normal affect, A&O x 3 Dx/Plan (1) PNA (pneumonia) Code(s): J18.9 - PNEUMONIA, UNSPECIFIED ORGANISM Status: Acute Qualifiers: Pneumonia type: due to group B Streptococcus Laterality: right (2) HTN (hypertension) Code(s): I10 - ESSENTIAL (PRIMARY) HYPERTENSION Status: Chronic Qualifiers: Hypertension type: essential hypertension Qualified Code(s): I10 - Essential (primary) hypertension (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 transplanted heart: [place] heart Associated angina: without angina Qualified Code(s): I25.810 - Atherosclerosis of coronary artery bypass graft(s) without angina pectoris Comment: 05/2018 (5) DM type 2 (diabetes mellitus, type 2) Status: Chronic Qualifiers: Diabetes mellitus extermination supervisor insulin use: without extermination supervisor use Diabetes mellitus complication status: with unspecified complications Qualified Code(s) : E11.8 - Type 2 diabetes mellitus with unspecified complications Comment: diet controlled (6) PVD (peripheral vascular disease) Code(s): I73.9 - PERIPHERAL VASCULAR DISEASE, UNSPECIFIED Status: Chronic (7) Cirrhosis Code(s): K74.60 - UNSPECIFIED CIRRHOSIS OF LIVER Status: Chronic Qualifiers: Hepatic cirrhosis type: unspecified hepatic cirrhosis Ascites presence: without ascites Qualified Code(s): K74.60 - Unspecified cirrhosis of liver (8) Atrial fibrillation Code(s): I48.91 - UNSPECIFIED ATRIAL FIBRILLATION Status: Chronic (9) Thrombocytopenia Code(s): D69.6 - THROMBOCYTOPENIA, UNSPECIFIED Status: Chronic - Plan is on vanc and zosyn, may dc vanc -: await full culture results, will get to see him in am -: CT chest no consolidation -: hep panel, no known h/o cirrhosis -: continue lisinopril and coumadin, off coreg due to bradycardia * . Review of Systems - Medications/Allergies Allergies/Adverse Reactions: Allergies Allergy/AdvReac Type Severity Reaction Status Date / Time No Known Allergies Allergy Verified 08/15/18 02:21 Medications: Current Medications Acetaminophen (Tylenol) 650 mg PO Q4H PRN PRN Reason: Headache/Fever/Mild Pain (1-3) Albuterol/Ipratropium (Duoneb) 3 ml NEB [id number] [facility] Last Admin: 08/16/18 06:55 Dose: 3 ml Piperacillin Sod/Tazobactam (Sod 4.5 gm/ Sodium Chloride) 100 mls @ 200 mls/hr IVPB 0500,1300,2100 [facility] Last Admin: 08/16/18 06:01 Dose: 100 mls Vancomycin HCl 1.5 gm/ Sodium (Chloride) 300 mls @ 200 mls/hr IVPB 0300,1500 [facility] Last Admin: 08/16/18 03:02 Dose: 300 mls Lisinopril (Zestril) 10 mg PO QAM [facility] Last Admin: 08/16/18 09:37 Dose: 10 mg Miscellaneous Medication (Pharmacy To Dose) 1 each IVPB PRN PRN PRN Reason: Pharmacy to dose Ondansetron HCl (Zofran) 4 mg IVP Q6H PRN PRN Reason: Nausea/Vomiting Oxybutynin Chloride (Ditropan Xl) 15 mg PO DAILY [facility] Sodium Chloride (Flush - Normal Saline) 10 ml IVF Q12HR [facility] Last Admin: 08/16/18 09:38 Dose: 10 ml Sodium Chloride (Flush - Normal Saline) 10 ml IVF PRN PRN PRN Reason: Saline Flush Last Admin: 08/15/18 14:23 Dose: 10 ml Warfarin Sodium (Coumadin) 10 mg PO TuTa [facility] Warfarin Sodium [facility]madin) [facility] Last Admin: 08/15/18 17:00 Dose: 5 mg Warfarin Sodium (Coumadin) 2 mg PO [facility] Last Admin: 08/15/18 17:00 Dose: 2 mg
[2018-08-16 12:28] LABS: HBSAg Index 0.26 S/CO (0-0.99); Hep A IgM AB Non-Reactive (NonReactive); Hep A IgM S/CO 0.14 S/CO (0-0.79); Hep B Surf Ag Non-Reactive S/CO (NonReactive); Hep C IgG Ab Non-Reactive (NonReactive); Hep C Index 0.24 S/CO (0-0.79); Hepatitis B Core IgM Abs Non-Reactive (NonReactive)
[2018-08-16] MEDS: Oxybutynin ER 5 MG TAB PO SCH (13:33)
[2018-08-16] MEDS: Warfarin Sodium 10 MG TAB PO SCH (17:11)
[2018-08-16] MEDS ORDERED: Furosemide 20 MG TAB PO SCH (17:15)
[2018-08-17] MEDS: Vancomycin HCl 1.5 GM in Sodium Chloride 0.9% 250 ML 300 ML IVPB SCH ×2 (02:35→14:59)
[2018-08-17] MEDS: Piperacillin/Tazobactam 4.5 GM in Sodium Chloride 0.9% 100 ML IVPB SCH ×3 (04:44→20:16)
[2018-08-17] MEDS: Oxybutynin ER 5 MG TAB PO SCH (09:20)
[2018-08-17] MEDS: Lisinopril 10 MG TAB PO SCH ×2 (09:20→20:09)
[2018-08-17 09:52] LABS: INR-International Normal Ratio 1.2; Prothrombin Time 15.4 SEC (12.0-14.7)
[2018-08-17] MEDS ORDERED: hydrALAZINE 20 MG/ML VIAL SLOW IVP PRN (13:27)
--- NOTE | 2018-08-17 13:31 | PDOC.PN ---
- Subjective Encounter Start Date: 08/17/18 Encounter Start Time: 13:29 Subjective: feels well.eager to go home -: no CP/SOB/fever?chills/Abd pain.some loose stools - Objective Resuscitation Status - Order Detail: 08/14/18 21:02 Resuscitation Status Routine Resuscitation Status: FULL: Full Resuscitation MAR Reviewed: Yes Vital Signs & Weight: Vital Signs (12 hours) Temp Pulse Resp BP BP Pulse Ox 08/17/18 10:45 98.3 F 52 L 16 169/81 H 96 08/17/18 09:20 183/64 H 08/17/18 08:00 96 08/17/18 07:29 97.2 F L 57 L 16 149/83 H 100 08/17/18 07:24 52 L 20 97 08/17/18 04:26 98.2 F 69 18 168/81 H 97 Weight Weight 233 lb 11.04 oz I&O: 08/16/18 08/17/18 08/18/18 06:59 06:59 06:59 Intake Total 2480 2720 Output Total 1925 2925 1650 Balance 555 -205 -1650 Result Diagrams: 08/15/18 04:06 08/15/18 04:06 Additional Labs: Microbiology 08/14/18 17:10 Urine bueno catheter Urine Culture - Final NO GROWTH AT 48 HOURS 08/14/18 17:20 Venous blood - Right Hand Blood Culture - Preliminary NO GROWTH AT 48 HOURS 08/14/18 17:20 Venous blood - Left Hand Blood Culture - Preliminary Streptococcus pneumoniae Laboratory Tests 08/07/18 08/14/18 08/15/18 15:51 17:22 04:06 Plt Count 162 101 L 93 L Radiology Reviewed by me: Yes (ECHO -NL EF. No acute abnormality noted) Phys Exam - Physical Examination Constitutional: NAD HEENT: PERRLA, moist MMs, sclera anicteric, TM's clear, oral pharynx no lesions , 2+ tonsils Neck: no nodes, no JVD, supple, full ROM Respiratory: no wheezing, no rales, no rhonchi, clear to auscultation bilateral Cardiovascular: RRR, no significant murmur Gastrointestinal: soft, non-tender, no distention, positive bowel sounds Musculoskeletal: no edema, pulses present Neurological: non-focal, normal sensation, moves all 4 limbs Psychiatric: normal affect, A&O x 3 Skin: no rash Dx/Plan (1) PNA (pneumonia) Code(s): J18.9 - PNEUMONIA, UNSPECIFIED ORGANISM Status: Acute Qualifiers: Pneumonia type: due to group B Streptococcus Laterality: right (2) Pneumococcal bacteremia Code(s): R78.81 - BACTEREMIA Status: Acute Comment: 1 Blood Cx positive (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 transplanted heart: [place] heart Associated angina: without angina Qualified Code(s): I25.810 - Atherosclerosis of coronary artery bypass graft(s) without angina pectoris Comment: 05/2018 (5) Cirrhosis Code(s): K74.60 - UNSPECIFIED CIRRHOSIS OF LIVER Status: Chronic Qualifiers: Hepatic cirrhosis type: unspecified hepatic cirrhosis Ascites presence: without ascites Qualified Code(s): K74.60 - Unspecified cirrhosis of liver Comment: Non alcohalic.probably BASS (6) DM type 2 (diabetes mellitus, type 2) Status: Chronic Qualifiers: Diabetes mellitus carrier packer insulin use: without chcf use Diabetes mellitus complication status: with unspecified complications Qualified Code(s) : E11.8 - Type 2 diabetes mellitus with unspecified complications Comment: diet controlled (7) HTN (hypertension) Code(s): I10 - ESSENTIAL (PRIMARY) HYPERTENSION Status: Chronic Qualifiers: Hypertension type: essential hypertension Qualified Code(s): I10 - Essential (primary) hypertension (8) PVD (peripheral vascular disease) Code(s): I73.9 - PERIPHERAL VASCULAR DISEASE, UNSPECIFIED Status: Chronic (9) Thrombocytopenia Code(s): D69.6 - THROMBOCYTOPENIA, UNSPECIFIED Status: Chronic Comment: Stable counts. likley due to cirrhosis (10) Atrial fibrillation Code(s): I48.91 - UNSPECIFIED ATRIAL FIBRILLATION Status: Chronic Comment: on coumadin - Plan plan discussed w/ family, continue antibiotics, PT/OT, respiratory therapy, incentive spirometry, out of bed/ambulate, DVT proph w/SCDs awaiting final ID recs -: BP high.Coreg on hold due to bradycardia -: add prn anti hypertensives -: increase lisinopril to BID -: restart Po lasix. * . [facility] w PO ABx as 1/ Cx postive.no repeat Cx sent no clear source of infection HD stable Review of Systems - Review of Systems Constitutional: negative: fever, chills, sweats, weakness, malaise, other ENT: negative: Ear Pain, Ear Discharge, Nose Pain, Nose Discharge, Nose Congestion, Mouth Pain, Mouth Swelling, Throat Pain, Throat Swelling, Other Respiratory: negative: Cough, Dry, Shortness of Breath, Hemoptysis, SOB with Excertion, Pleuritic Pain, Sputum, Wheezing Cardiovascular: negative: chest pain, palpitations, orthopnea, paroxysmal nocturnal dyspnea, edema, light headedness, other Gastrointestinal: negative: Nausea, Vomiting, Abdominal Pain, Diarrhea, Constipation, Melena, Hematochezia, Other Genitourinary: negative: Dysuria, Frequency, Incontinence, Hematuria, Retention , Other Musculoskeletal: negative: Neck Pain, Shoulder Pain, Arm Pain, Back Pain, Hand Pain, Leg Pain, Foot Pain, Other Neurological: negative: Weakness, Numbness, Incoordination, Change in Speech, Confusion, Seizures, Other - Medications/Allergies Allergies/Adverse Reactions: Allergies Allergy/AdvReac Type Severity Reaction Status Date / Time No Known Allergies Allergy Verified 08/15/18 02:21 Medications: Current Medications Acetaminophen (Tylenol) 650 mg PO Q4H PRN PRN Reason: Headache/Fever/Mild Pain (1-3) Albuterol/Ipratropium (Duoneb) 3 ml NEB [id number] [facility] Last Admin: 08/17/18 07:24 Dose: 3 ml Clonidine (Catapres) 0.1 mg PO Q4H PRN PRN Reason: SBP>160 Furosemide (Lasix) 40 mg PO DAILY [facility] Hydralazine HCl (Apresoline) 10 mg SLOW IVP Q4H PRN PRN Reason: SBP>170 Piperacillin Sod/Tazobactam (Sod 4.5 gm/ Sodium Chloride) 100 mls @ 200 mls/hr IVPB 0500,1300,2100 [facility] Last Admin: 08/17/18 13:06 Dose: 100 mls Vancomycin HCl 1.5 gm/ Sodium (Chloride) 300 mls @ 200 mls/hr IVPB 0300,1500 [facility] Last Admin: 08/17/18 02:35 Dose: 300 mls Lisinopril (Zestril) 10 mg PO QAM [facility] Last Admin: 08/17/18 09:20 Dose: 10 mg Miscellaneous Medication (Pharmacy To Dose) 1 each IVPB PRN PRN PRN Reason: Pharmacy to dose Ondansetron HCl (Zofran) 4 mg IVP Q6H PRN PRN Reason: Nausea/Vomiting Oxybutynin Chloride (Ditropan Xl) 15 mg PO DAILY [facility] Last Admin: 08/17/18 09:20 Dose: 15 mg Sodium Chloride (Flush - Normal Saline) 10 ml IVF Q12HR [facility] Last Admin: 08/17/18 09:20 Dose: 10 ml Sodium Chloride (Flush - Normal Saline) 10 ml IVF PRN PRN PRN Reason: Saline Flush Last Admin: 08/15/18 14:23 Dose: 10 ml Warfarin Sodium (Coumadin) 10 mg PO TuThSa [facility] Last Admin: 08/16/18 17:11 Dose: 10 mg Warfarin Sodium (Coumadin) 5 mg PO SuMoWeFr [facility] Last Admin: 08/15/18 17:00 Dose: 5 mg Warfarin Sodium (Coumadin) 2 mg PO SuMoWeFr [facility] Last Admin: 08/15/18 17:00 Dose: 2 mg
--- NOTE | 2018-08-17 14:23 | PRG ---
DATE OF SERVICE: 08/17/2018 SUBJECTIVE: The patient is afebrile with stable vital signs. He has had good urine output. His urine output is clear. His final urine culture is no growth at 48 hours. I discussed his pathology with him from his bladder tumor resection, it was bladder cancer, noninvasive, low-grade. His catheter was removed this morning. I have called and talked with his nurse since the removal and he has been urinating without any difficulty. Clear urine. From my standpoint, he is ready to be discharged home with scheduled regular followup with me in the future in my office for surveillance cystoscopy. Job ID: [id number]
--- NOTE | 2018-08-17 14:41 | PQF ---
CLINICAL DOCUMENTATION IMPROVEMENT CLARIFICATION FORM: ICD-10 Updated PLEASE DO AN ADDENDUM TO THE PROGRESS NOTE WITH ANY DOCUMENTATION UPDATES OR ADDITIONS AND CARRY THROUGH TO DC SUMMARY. THANK YOU. DATE: 08/17/18 ATTN: DR. LOPEZ Please exercise your independent, professional judgment in responding to the clarification form. Clinical indicators are provided on the bottom of this form for your review Please check appropriate box(s) to clarify if the following diagnosis has been ruled in or ruled out: SEPSIS [ ] Ruled in diagnosis [ X] Continue to treat [ ] Resolved [ ] Ruled out diagnosis [ ] Cannot rule out diagnosis [ ] Other diagnosis [ ] Unable to determine In addition, please specify: Present on Admission (POA): [ X ] Yes [ ] No [ ] Unable to determine For continuity of documentation, please document condition throughout progress notes and discharge summary. Thank You. CLINICAL INDICATORS - SIGNS / SYMPTOMS / LABS ER NOTE: "ADMIT FOR SEPSIS" H&P 08/14: "POSSIBLE SEPSIS" PULSE 107 TEMP 103.2 RR 26 RISKS: PNEUMONIA UTI TREATMENT: IV FLUIDS (ER) IV ZOSYN (ER-2/1) IV VANCOMYCIN (ER-2/1) IV ROCEPHIN (ER) BLOOD AND URINE CULTURES SAP Appointment Coordinator [employer] Winform Viewer (This form is maintained as a part of the permanent medical record) 2014 [employer]. All Rights Reserved LISANDRA [email or web address] Office: [phone] [email or web address]
[2018-08-17 14:45] LABS: Vancomycin, Trough 16.5 ug/mL
[2018-08-17] MEDS: cloNIDine 0.1 MG TAB PO PRN (17:28)
[2018-08-17] MEDS: Warfarin Sodium 5 MG TAB PO SCH (17:36)
[2018-08-17] MEDS: Warfarin Sodium 2 MG TAB PO SCH (17:36)
[2018-08-18] MEDS: Vancomycin HCl 1.5 GM in Sodium Chloride 0.9% 250 ML 300 ML IVPB SCH ×2 (02:16→14:00)
[2018-08-18] MEDS: Piperacillin/Tazobactam 4.5 GM in Sodium Chloride 0.9% 100 ML IVPB SCH ×2 (04:47→14:00)
[2018-08-18 05:47] LABS: INR-International Normal Ratio 1.3; Prothrombin Time 16.1 SEC (12.0-14.7)
[2018-08-18 05:59] LABS: Anion Gap 11 mmol/L (10-20); BUN (Urea Nitrogen) 15 mg/dL (8.4-25.7); Calc. Creatinine Clearance 124 mL/min (70-130); Calcium 8.8 mg/dL (7.8-10.44); Carbon Dioxide 22 mmol/L (23-31); Chloride 112 mmol/L (98-107); Estimated GFR-MDRD Greater than 90; Glucose 90 mg/dL (83-110); Potassium 3.9 mmol/L (3.5-5.1); Sodium 141 mmol/L (136-145)
[2018-08-18 06:06] LABS: #Eosinphils 0.3 thou/uL (0.0-0.7); #Lymphocytes 0.5 thou/uL (1.20-3.40); #Monocytes 0.3 thou/uL (0.11-0.59); #Neutrophils 2.3 thou/uL (1.40-6.50); %Basophils 1.2 % (0.0-1.0); %Eosinophils 8.9 % (0.0-10.0); %Monocytes 9.6 % (0.0-10.0); %Neutrophils 67.3 % (42.0-75.0); Hemoglobin 11.4 g/dL (14.0-18.0); Mean Corpuscular HGB CONC 33.4 g/dL (32.0-36.0); Mean Corpuscular Hemoglobin 33.3 pg (27.0-31.0); Mean Corpuscular Volume 99.6 fL (78.0-98.0); Mean Platelet Volume 7.5 fL (7.4-10.4); Platelet Count 103 thou/uL (130-400); RBC Distribution Width 13.4 % (11.5-14.5); Red Blood Cell (RBC) Count 3.41 mill/uL (4.70-6.10); White Blood Cell (WBC) Count 3.5 thou/uL (4.8-10.8)
[2018-08-18] MEDS: Oxybutynin ER 5 MG TAB PO SCH (07:52)
[2018-08-18] MEDS: Furosemide 40 MG TAB PO SCH (07:52)
[2018-08-18] MEDS: Lisinopril 10 MG TAB PO SCH ×2 (07:53→21:15)
--- NOTE | 2018-08-18 13:12 | PDOC.PN ---
- Subjective Encounter Start Date: 08/18/18 Encounter Start Time: 13:11 Subjective: feels well. Bueno taken out yesterday and urinating well -: no blood in urine.no F/C.no SOB - Objective Resuscitation Status - Order Detail: 08/14/18 21:02 Resuscitation Status Routine Resuscitation Status: FULL: Full Resuscitation MAR Reviewed: Yes Vital Signs & Weight: Vital Signs (12 hours) Temp Pulse Resp BP BP Pulse Ox 08/18/18 11:15 98.2 F 57 L 18 183/83 H 98 08/18/18 08:07 54 L 16 96 08/18/18 07:53 184/93 H 08/18/18 07:19 98.1 F 65 18 184/92 H 98 08/18/18 04:00 97.6 F 52 L 18 153/75 H 96 08/18/18 01:45 53 L 16 98 Weight Weight 233 lb 11.04 oz I&O: 08/17/18 08/18/18 08/19/18 06:59 06:59 06:59 Intake Total 2720 900 480 Output Total 2925 1650 Balance -205 -750 480 Result Diagrams: 08/18/18 05:27 08/18/18 05:26 Additional Labs: Microbiology 08/14/18 17:10 Urine bueno catheter Urine Culture - Final NO GROWTH AT 48 HOURS 08/14/18 17:20 Venous blood - Right Hand Blood Culture - Preliminary NO GROWTH AT 48 HOURS 08/14/18 17:20 Venous blood - Left Hand Blood Culture - Preliminary Streptococcus pneumoniae Streptococcus mitis\oralis Phys Exam - Physical Examination Constitutional: NAD HEENT: PERRLA, moist MMs, sclera anicteric, oral pharynx no lesions Neck: no nodes, no JVD, supple, full ROM Respiratory: no wheezing, no rales, no rhonchi, clear to auscultation bilateral Cardiovascular: RRR, no significant murmur, no rub Gastrointestinal: soft, non-tender, no distention, positive bowel sounds Musculoskeletal: no edema, pulses present chr venostasis changes b/l legs Neurological: non-focal, normal sensation, moves all 4 limbs Psychiatric: normal affect, A&O x 3 Skin: no rash Dx/Plan (1) PNA (pneumonia) Code(s): J18.9 - PNEUMONIA, UNSPECIFIED ORGANISM Status: Acute Qualifiers: Pneumonia type: due to group B Streptococcus Laterality: right (2) Pneumococcal bacteremia Code(s): R78.81 - BACTEREMIA Status: Acute Comment: 1/2 Blood Cx positive (3) Transitional cell bladder cancer Code(s): C67.9 - MALIGNANT NEOPLASM OF BLADDER, UNSPECIFIED Status: Acute Comment: recurrent, s/p turbt on 08/13/2018 (4) CAD (coronary artery disease) Code(s): I25.10 - ATHSCL HEART DISEASE OF [place] CORONARY ARTERY W/O ANG PCTRS Status: Chronic Qualifiers: Coronary Disease-Associated Artery/Lesion type: bypass graft [place] vs. transplanted heart: [place] heart Associated angina: without angina Qualified Code(s): I25.810 - Atherosclerosis of coronary artery bypass graft(s) without angina pectoris Comment: 05/2018 (5) Cirrhosis Code(s): K74.60 - UNSPECIFIED CIRRHOSIS OF LIVER Status: Chronic Qualifiers: Hepatic cirrhosis type: unspecified hepatic cirrhosis Ascites presence: without ascites Qualified Code(s): K74.60 - Unspecified cirrhosis of liver Comment: Non alcohalic.probably BASS (6) DM type 2 (diabetes mellitus, type 2) Status: Chronic Qualifiers: Diabetes mellitus group home insulin use: without termite helper use Diabetes mellitus complication status: with unspecified complications Qualified Code(s) : E11.8 - Type 2 diabetes mellitus with unspecified complications Comment: diet controlled (7) HTN (hypertension) Code(s): I10 - ESSENTIAL (PRIMARY) HYPERTENSION Status: Chronic Qualifiers: Hypertension type: essential hypertension Qualified Code(s): I10 - Essential (primary) hypertension (8) PVD (peripheral vascular disease) Code(s): I73.9 - PERIPHERAL VASCULAR DISEASE, UNSPECIFIED Status: Chronic (9) Thrombocytopenia Code(s): D69.6 - THROMBOCYTOPENIA, UNSPECIFIED Status: Chronic Comment: Stable counts. likley due to cirrhosis (10) Atrial fibrillation Code(s): I48.91 - UNSPECIFIED ATRIAL FIBRILLATION Status: Chronic Comment: on coumadin - Plan DVT proph w/SCDs clinically douing wonderful.awaiting final ID recs -: on empiri cABx for now for 1/2 blood Cx +ve for pneumococcus -: apprecite urology input -: DC home soon if PO Abx recommenede by Dr. Ferrell * . Review of Systems - Review of Systems Constitutional: negative: fever, chills, sweats, weakness, malaise, other Eyes: negative: Pain, Vision Change, Conjunctivae Inflammation, Eyelid Inflammation, Redness, Other ENT: negative: Ear Pain, Ear Discharge, Nose Pain, Nose Discharge, Nose Congestion, Mouth Pain, Mouth Swelling, Throat Pain, Throat Swelling, Other Respiratory: negative: Cough, Dry, Shortness of Breath, Hemoptysis, SOB with Excertion, Pleuritic Pain, Sputum, Wheezing Cardiovascular: negative: chest pain, palpitations, orthopnea, paroxysmal nocturnal dyspnea, edema, light headedness, other Gastrointestinal: negative: Nausea, Vomiting, Abdominal Pain, Diarrhea, Constipation, Melena, Hematochezia, Other Genitourinary: negative: Dysuria, Frequency, Incontinence, Hematuria, Retention , Other Musculoskeletal: negative: Neck Pain, Shoulder Pain, Arm Pain, Back Pain, Hand Pain, Leg Pain, Foot Pain, Other Skin: negative: Rash, Lesions, [place], Bruising, Other Neurological: negative: Weakness, Numbness, Incoordination, Change in Speech, Confusion, Seizures, Other - Medications/Allergies Allergies/Adverse Reactions: Allergies Allergy/AdvReac Type Severity Reaction Status Date / Time No Known Allergies Allergy Verified 08/15/18 02:21 Medications: Current Medications Acetaminophen (Tylenol) 650 mg PO Q4H PRN PRN Reason: Headache/Fever/Mild Pain (1-3) Albuterol/Ipratropium (Duoneb) 3 ml NEB [id number] [facility] Last Admin: 08/18/18 08:07 Dose: 3 ml Clonidine (Catapres) 0.1 mg PO Q4H PRN PRN Reason: SBP>160 Last Admin: 08/17/18 17:28 Dose: 0.1 mg Furosemide (Lasix) 40 mg PO DAILY [facility] Last Admin: 08/18/18 07:52 Dose: 40 mg Hydralazine HCl (Apresoline) 10 mg SLOW IVP Q4H PRN PRN Reason: SBP>170 Last Admin: 08/17/18 17:29 Dose: 10 mg Piperacillin Sod/Tazobactam (Sod 4.5 gm/ Sodium Chloride) 100 mls @ 200 mls/hr IVPB 0500,1300,2100 [facility] Last Admin: 08/18/18 04:47 Dose: 100 mls Vancomycin HCl 1.5 gm/ Sodium (Chloride) 300 mls @ 200 mls/hr IVPB 0300,1500 [facility] Last Admin: 08/18/18 02:16 Dose: 300 mls Lisinopril (Zestril) 10 mg PO BID [facility] Last Admin: 08/18/18 07:53 Dose: 10 mg Miscellaneous Medication (Pharmacy To Dose) 1 each IVPB PRN PRN PRN Reason: Pharmacy to dose Ondansetron HCl (Zofran) 4 mg IVP Q6H PRN PRN Reason: Nausea/Vomiting Oxybutynin Chloride (Ditropan Xl) 15 mg PO DAILY [facility] Last Admin: 08/18/18 07:52 Dose: 15 mg Sodium Chloride (Flush - Normal Saline) 10 ml IVF Q12HR [facility] Last Admin: 08/18/18 07:53 Dose: 10 ml Sodium Chloride (Flush - Normal Saline) 10 ml IVF PRN PRN PRN Reason: Saline Flush Last Admin: 08/15/18 14:23 Dose: 10 ml Warfarin Sodium (Coumadin) 10 mg PO TuThSa [facility] Last Admin: 08/16/18 17:11 Dose: 10 mg Warfarin Sodium (Coumadin) 5 mg PO SuMoWeFr [facility] Last Admin: 08/17/18 17:36 Dose: 5 mg Warfarin Sodium (Coumadin) 2 mg PO SuMoWeFr [facility] Last Admin: 08/17/18 17:36 Dose: 2 mg
[2018-08-18] MEDS: Warfarin Sodium 10 MG TAB PO SCH (16:11)
[2018-08-18] MEDS: cloNIDine 0.1 MG TAB PO PRN (16:11)
[2018-08-18] MEDS: cefTRIAXone\\ROCEPHIN 2 GM in Sodium Chloride 0.9% 100 ML IVPB SCH (17:06)
--- NOTE | 2018-08-18 22:47 | CON ---
DATE OF CONSULTATION: 08/18/2018 REASON FOR CONSULTATION: Bacteremia. HISTORY OF PRESENT ILLNESS: A 78-year-old who has a history of coronary artery disease and prior bypass graft surgery and atrial fibrillation, who developed change in mental status with some nausea and weakness, fairly sudden onset. The patient had a procedure by Dr. Sharma with bladder polyp removal and then he was admitted to the hospital because of this change in mental status. Initial evaluation showed BP 160/70, heart rate 107, respirations 16, and temperature 103.2. He appeared alert, oriented, and the abdomen was soft. There was no tenderness. Skin was warm. A little bit confused. Chest x-ray showed cardiomegaly and increased interstitial opacities particularly on the right side, perihilar region. CT abdomen and pelvis without any inflammatory changes. There was evidence of liver cirrhosis with splenomegaly which was mild. 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 The patient was started on broad-spectrum coverage and then we had Streptococcus pneumoniae and Streptococcus mitis/oralis isolated from 1 set of blood cultures. Urine culture, no growth at 48 hours. Currently, Mr. Lozoya is feeling better. He is oriented. in the room with him. Denies headaches. No cough, sputum production, or chest pain. No abdominal pain. No genitourinary symptoms. No joint symptoms. No neurological symptoms. MEDICAL HISTORY: Coronary artery disease with bypass graft surgery, atrial fibrillation, and probably now most likely has a steatohepatitis as identified in the CT. PAST SURGICAL HISTORY: As above, bladder polyp removal the day before admission. SOCIAL HISTORY: Never smoker. Never drank alcoholic beverages. FAMILY HISTORY: Noncontributory. ALLERGIES: NONE. CURRENT MEDICATIONS: 1. DuoNeb. 2. Catapres. 3. Hydralazine. 4. Lasix. 5. Zestril. 6. Zofran. 7. Zosyn. 8. Vancomycin. 9. Warfarin. PHYSICAL EXAMINATION: VITAL SIGNS: T-max 98.3, blood pressure 180/80, pulse 57, respirations 18, O2 saturation 98%. SKIN: Unremarkable. HEENT: No lymphadenopathy. Ocular movements conjugate. Oral cavity normal, numerous teeth in place with some decay. NECK: Supple. No jugular vein distention. LUNGS: Symmetric, clear breath sounds. HEART: S1 and S2. Regular rate. No S3 or S4. ABDOMEN: Soft, not distended or tender. No ascites. No bladder distention. MUSCULOSKELETAL: No joint inflammatory activity. EXTREMITIES: Moves extremities equally. NEUROLOGIC: Cognitive function appears to be intact. LABORATORY DATA: White cell count 3.8, 7.8, and then 3.5, hemoglobin is 11.4, platelets 103,000, and 67% neutrophils. Sodium 138, creatinine 0.88, bilirubin 1.4. Transaminases and alkaline phosphatase are normal. Albumin 3.7. BNP 380. Urinalysis with 11 to 20 wbc's. Hepatitis serology was negative. Toxicology, vancomycin trough 14.4. ASSESSMENT: 1. Coronary artery disease. 2. Delirium associated with streptococcal bacteremia. 3. Liver cirrhosis, most likely secondary to steatohepatitis, which had not yet been previously diagnosed. DISCUSSION: The most likely scenario is transient bacteremia associated with his liver cirrhosis. It may have been associated with the procedure done the day before admission. There is some temporary relationship. The identification of the organism is not clear yet and we do not have susceptibilities, so I would recommend to wait prior to discharge planning to obtain the full identification and susceptibility profile. Most likely, we will be able to discharge him on oral amoxicillin for 2 weeks, 1 g q.8 hours. Job ID: [id number]
[2018-08-19 07:50] LABS: INR-International Normal Ratio 1.3
[2018-08-19] MEDS: Oxybutynin ER 5 MG TAB PO SCH (08:02)
[2018-08-19] MEDS: Furosemide 40 MG TAB PO SCH (08:02)
[2018-08-19] MEDS: Lisinopril 10 MG TAB PO SCH (08:03)
[2018-08-19] MEDS ORDERED: Artificial Tear Sol 15 ML BOT EA EYE PRN (13:46)
--- NOTE | 2018-08-19 13:48 | PDOC.PN ---
- Subjective Encounter Start Date: 08/19/18 Encounter Start Time: 13:47 Subjective: feels well. some redness and dryness around lower eyelid on Left -: no F/C/Cough/N/V/D -: no dysuria or blood in urine - Objective Resuscitation Status - Order Detail: 08/14/18 21:02 Resuscitation Status Routine Resuscitation Status: FULL: Full Resuscitation MAR Reviewed: Yes Vital Signs & Weight: Vital Signs (12 hours) Temp Pulse Resp BP BP Pulse Ox 08/19/18 12:00 98.5 F 73 20 164/86 H 98 08/19/18 08:54 98.0 F 55 L 18 141/57 H 97 08/19/18 08:03 147/57 H 08/19/18 07:41 53 L 20 96 Weight Weight 233 lb 11.04 oz I&O: 08/18/18 08/19/18 08/20/18 06:59 06:59 06:59 Intake Total 900 2380 Output Total 1650 Balance -750 2380 Result Diagrams: 08/18/18 05:27 08/18/18 05:26 Additional Labs: Microbiology 08/14/18 17:10 Urine bueno catheter Urine Culture - Final NO GROWTH AT 48 HOURS 08/14/18 17:20 Venous blood - Right Hand Blood Culture - Preliminary NO GROWTH AT 48 HOURS 08/14/18 17:20 Venous blood - Left Hand Blood Culture - Preliminary Streptococcus pneumoniae Streptococcus mitis\oralis Phys Exam - Physical Examination Constitutional: NAD HEENT: PERRLA, moist MMs, sclera anicteric, oral pharynx no lesions slight dry and red skin lower eyelid left side.no conjuctival irritation Neck: no nodes, no JVD, supple, full ROM Respiratory: no wheezing, no rales, no rhonchi, clear to auscultation bilateral Cardiovascular: RRR, no significant murmur, no rub Gastrointestinal: soft, non-tender, no distention, positive bowel sounds Musculoskeletal: no edema, pulses present Neurological: non-focal, normal sensation, moves all 4 limbs Psychiatric: normal affect, A&O x 3 Skin: no rash Dx/Plan (1) PNA (pneumonia) Code(s): J18.9 - PNEUMONIA, UNSPECIFIED ORGANISM Status: Acute Qualifiers: Pneumonia type: due to group B Streptococcus Laterality: right (2) Pneumococcal bacteremia Code(s): R78.81 - BACTEREMIA Status: Acute Comment: 1/2 Blood Cx positive (3) Transitional cell bladder cancer Code(s): C67.9 - MALIGNANT NEOPLASM OF BLADDER, UNSPECIFIED Status: Acute Comment: recurrent, s/p turbt on 08/13/2018 (4) CAD (coronary artery disease) Code(s): I25.10 - ATHSCL HEART DISEASE OF [place] CORONARY ARTERY W/O ANG PCTRS Status: Chronic Qualifiers: Coronary Disease-Associated Artery/Lesion type: bypass graft [place] vs. transplanted heart: [place] heart Associated angina: without angina Qualified Code(s): I25.810 - Atherosclerosis of coronary artery bypass graft(s) without angina pectoris Comment: 05/2018 (5) Cirrhosis Code(s): K74.60 - UNSPECIFIED CIRRHOSIS OF LIVER Status: Chronic Qualifiers: Hepatic cirrhosis type: unspecified hepatic cirrhosis Ascites presence: without ascites Qualified Code(s): K74.60 - Unspecified cirrhosis of liver Comment: Non alcohalic.probably BASS (6) DM type 2 (diabetes mellitus, type 2) Status: Chronic Qualifiers: Diabetes mellitus rn long term care insulin use: without rn long term care use Diabetes mellitus complication status: with unspecified complications Qualified Code(s) : E11.8 - Type 2 diabetes mellitus with unspecified complications Comment: diet controlled (7) HTN (hypertension) Code(s): I10 - ESSENTIAL (PRIMARY) HYPERTENSION Status: Chronic Qualifiers: Hypertension type: essential hypertension Qualified Code(s): I10 - Essential (primary) hypertension (8) PVD (peripheral vascular disease) Code(s): I73.9 - PERIPHERAL VASCULAR DISEASE, UNSPECIFIED Status: Chronic (9) Thrombocytopenia Code(s): D69.6 - THROMBOCYTOPENIA, UNSPECIFIED Status: Chronic Comment: Stable counts. likley due to cirrhosis (10) Atrial fibrillation Code(s): I48.91 - UNSPECIFIED ATRIAL FIBRILLATION Status: Chronic Comment: on coumadin - Plan plan discussed w/ family, continue antibiotics, out of bed/ambulate, DVT proph w /SCDs awaiting final Cx results.clinically better -: DC home if Pneumococcus sensitive to PCN on PO amoxicillin per ID -: add artificial tears to eyes.no sign of conjuctivitis -: home meds as below. -: INR still low. increase coumadin to 10 mg tonight and reckeck inr in am * . Review of Systems - Review of Systems Constitutional: negative: fever, chills, sweats, weakness, malaise, other Eyes: Eyelid Inflammation. negative: Pain, Vision Change, Conjunctivae Inflammation, Redness, Other ENT: negative: Ear Pain, Ear Discharge, Nose Pain, Nose Discharge, Nose Congestion, Mouth Pain, Mouth Swelling, Throat Pain, Throat Swelling, Other Respiratory: negative: Cough, Dry, Shortness of Breath, Hemoptysis, SOB with Excertion, Pleuritic Pain, Sputum, Wheezing Cardiovascular: negative: chest pain, palpitations, orthopnea, paroxysmal nocturnal dyspnea, edema, light headedness, other Gastrointestinal: negative: Nausea, Vomiting, Abdominal Pain, Diarrhea, Constipation, Melena, Hematochezia, Other Genitourinary: negative: Dysuria, Frequency, Incontinence, Hematuria, Retention , Other Musculoskeletal: negative: Neck Pain, Shoulder Pain, Arm Pain, Back Pain, Hand Pain, Leg Pain, Foot Pain, Other Neurological: negative: Weakness, Numbness, Incoordination, Change in Speech, Confusion, Seizures, Other - Medications/Allergies Allergies/Adverse Reactions: Allergies Allergy/AdvReac Type Severity Reaction Status Date / Time No Known Allergies Allergy Verified 08/15/18 02:21 Medications: Current Medications Acetaminophen (Tylenol) 650 mg PO Q4H PRN PRN Reason: Headache/Fever/Mild Pain (1-3) Albuterol/Ipratropium (Duoneb) 3 ml NEB [id number] [facility] Last Admin: 08/19/18 07:41 Dose: 3 ml Artificial Tears (Tears Renewed 15ml Bottle) 2 drop EA EYE QID PRN PRN Reason: Dry Eyes Artificial Tears (Tears Naturale) 2 drop EA EYE ONE [facility] Clonidine (Catapres) 0.1 mg PO Q4H PRN PRN Reason: SBP>160 Last Admin: 08/18/18 16:11 Dose: 0.1 mg Furosemide (Lasix) 40 mg PO DAILY [facility] Last Admin: 08/19/18 08:02 Dose: 40 mg Hydralazine HCl (Apresoline) 10 mg SLOW IVP Q4H PRN PRN Reason: SBP>170 Last Admin: 08/17/18 17:29 Dose: 10 mg Ceftriaxone Sodium 2 gm/ (Sodium Chloride) 100 mls @ 200 mls/hr IVPB Q24HR [facility] Last Admin: 08/18/18 17:06 Dose: 100 mls Lisinopril (Zestril) 10 mg PO BID [facility] Last Admin: 08/19/18 08:03 Dose: 10 mg Miscellaneous Medication (Pharmacy To Dose) 1 each IVPB PRN PRN PRN Reason: Pharmacy to dose Ondansetron HCl (Zofran) 4 mg IVP Q6H PRN PRN Reason: Nausea/Vomiting Oxybutynin Chloride (Ditropan Xl) 15 mg PO DAILY [facility] Last Admin: 08/19/18 08:02 Dose: 15 mg Sodium Chloride (Flush - Normal Saline) 10 ml IVF Q12HR [facility] Last Admin: 08/19/18 08:03 Dose: 10 ml Sodium Chloride (Flush - Normal Saline) 10 ml IVF PRN PRN PRN Reason: Saline Flush Last Admin: 08/15/18 14:23 Dose: 10 ml Warfarin Sodium (Coumadin) 10 mg PO 1700 [facility]
[2018-08-19] MEDS ORDERED: Artificial Tears 18 DROP/0.9 ML EA EYE SCH (14:00)
[2018-08-19] MEDS: cefTRIAXone\\ROCEPHIN 2 GM in Sodium Chloride 0.9% 100 ML IVPB SCH (16:24)
[2018-08-19 16:42] VITALS: BP 188/71
[2018-08-19] MEDS: cloNIDine 0.1 MG TAB PO PRN (16:42)
[2018-08-19 16:43] VITALS: TEMP 98.3
[2018-08-19] MEDS ORDERED: Warfarin Sodium 10 MG TAB PO SCH (17:00)
--- NOTE | 2018-08-19 17:27 | DIS ---
DATE OF ADMISSION: 08/14/2018 DATE OF DISCHARGE: 08/19/2018 PRIMARY CARE PHYSICIAN: Dr. Nestor Napier. CONDITION: At the time of discharge, stable. DISCHARGE DISPOSITION: Home. DISCHARGE DIAGNOSES: 1. Pneumococcal bacteremia. 2. Pneumonia, right-sided, suspected due to Pneumococcus. 3. History of transitional cell bladder cancer, status post surgery on 08/13/2018. 4. Coronary artery disease, status post coronary artery bypass grafting in May 2018. 5. History of non-alcoholic cirrhosis. 6. Diabetes mellitus. 7. Hypertension. 8. Peripheral vascular disease. 9. Chronic thrombocytopenia, likely due to cirrhosis. 10. Chronic atrial fibrillation, on Coumadin. Please note that the cirrhosis is a new diagnosis for the patient, which was found incidentally on the CT scan of the abdomen. DISCHARGE MEDICATIONS: Resume the home medication as per the HPI. New medications as followed: 1. Amoxicillin 500 mg three times a day for 10 days. 2. Levofloxacin 500 mg daily for 10 days. IN-HOUSE CONSULTATION: Infectious Disease, Dr. Ferrell. PROCEDURES DONE IN THE HOSPITAL: Include; 1. CT scan of the abdomen and pelvis, which shows cirrhotic morphology of the liver without any evidence of any acute changes. He had mild splenomegaly and splenic varices. Diverticulosis was seen without diverticulitis. 2. CT scan of the chest, which showed mild chronic lung changes and vascular calcification in the coronary arteries and thoracic aorta. No acute changes were once again noticed. 3. Transthoracic echocardiogram, which shows normal ejection fraction and normal wall motion. No comment was made by the reading commercial account officer about any vegetations. HISTORY OF PRESENTING ILLNESS: Mr. Lozoya is a very pleasant 78-year-old male with past medical history of coronary artery disease with recent procedure for bladder cell carcinoma by Dr. Sharma, who presented one day after the procedure with changes in mental status. He has history of chronic atrial fibrillation, on chronic anticoagulation. Chest x-ray done in the emergency room showed possible pneumonia, and the patient was placed in the hospital on empiric antibiotics. There was also concern of possible urinary tract infection. Please see admission history and physical for further details. His lactic acid was elevated to 2.5 upon presentation and white count was low at 3.8. HOSPITAL COURSE: The patient's cultures were followed and his urine culture remained negative, but his blood culture grew 1 out 2 Streptococcus pneumoniae as well as Streptococcus mitis. This confounded the results as the patient was clinically free of any signs or symptoms of sepsis and was stable. A CT scan of the chest, abdomen, and pelvis was done, which was unremarkable. Echo was also done, which did not show any specific changes. The patient remained stable and eventually was seen by Infectious Disease, who recommended that he will be discharged on oral Levaquin and amoxicillin as the lab could not identify the final organism or the sensitivities to it. The patient's discharge was delayed because of the wait for the culture results. Eventually, he was cleared for discharge today by Dr. Ferrell and will follow with him in the outpatient setting closely. He was seen and examined prior to discharge. Please see hospitalist progress note from today's date for further details including [id number] interaction. Total time spent in the discharge, 32 minutes. Job ID: [id number]
== END 2018-08-19 17:10 | disposition home or self-care (01) | DRG 871 ==
LOC: ERS 16:24 → ERHOLD 20:48 → T4-B 08-15 13:02
PROVIDERS: ADMIT Hospitalist; ATTEND Hospitalist
DX: A40.8 Other streptococcal sepsis (principal); J18.9 Pneumonia, unspecified organism; N39.0 Urinary tract infection, site not specified; E87.2 Acidosis; I25.10 Atherosclerotic heart disease of native coronary artery without angina pectoris; Z95.1 Presence of aortocoronary bypass graft; I48.91 Unspecified atrial fibrillation; E11.51 Type 2 diabetes mellitus with diabetic peripheral angiopathy without gangrene; K74.60 Unspecified cirrhosis of liver; D69.6 Thrombocytopenia, unspecified; I10 Essential (primary) hypertension; C67.9 Malignant neoplasm of bladder, unspecified
CPT/HCPCS: 36415; 71045; 71250; 74177; 74420; 80048; 80053; 80074; 80202; 81003; 81015; 83605; 83690; 83880; 85025; 85610; 87040; 87086; 87149; 88305; 93005; 93306; 94640; 96361; 96365; 96367; C1758; J0360; J0696; J2001; J2405; J2543; J2704; J3010; J3370; J7050; J7620; Q9961; Q9966

== ENCOUNTER 2019-07-01 07:26 | Outpatient (CLI) | payer MEDICARE ==
--- NOTE | 2019-07-01 10:26 | ULT ---
HEPATIC DOPPLER: HISTORY: Cirrhosis. COMPARISON: None. TECHNIQUE: Lopez scale, color flow, Doppler imaging, and spectral waveform analysis of the liver is performed. FINDINGS: There are no hepatic masses. Contour of the hepatic margin is maintained. Right hepatic lobe measur es 19.6 cm. No sonographic evidence of cholelithiasis, gallbladder wall thickening, or pericholecystic fluid. Ne gative Nieves's sign. Common bile duct diameter is 0.3 cm. The spleen has a normal echotexture, measuring 14.4 cm in maximum dimension. Limited evaluation of the pancreas, IVC, and aorta due to bowel gas. HEPATIC DOPPLER: There is patency and appropriate directional flow in the right hepatic vein, left hepatic vein, middl e hepatic vein, hepatic artery, main portal vein, left portal vein, and right portal vein. There is patency and flow in the splenic vein and artery. IMPRESSION: 1. Normal hepatic Doppler. 2. Mild splenomegaly. POS: CET
== END 2019-07-01 07:27 | disposition home or self-care (01) ==
LOC: ULT 07:26
PROVIDERS: ATTEND Internal Medicine Gastroenterology
DX: K74.60 Unspecified cirrhosis of liver (principal); R16.1 Splenomegaly, not elsewhere classified
CPT/HCPCS: 76705